=== PATIENT | male | born 1950 | race African-American/Black ===

== ENCOUNTER 2016-07-18 16:57 | Emergency (ER) | payer MEDICARE, OTHER ==
[2016-07-18] MEDS ORDERED: KETOROLAC 60 MG/2 ML VIAL IM STA (17:24)
[2016-07-18] MEDS ORDERED: ORPHENADRINE 30 MG/ML 2 ML VIAL IM STA (17:24)
--- NOTE | 2016-07-18 17:54 | CT ---
EXAMINATION TYPE: CT cervical spine wo con DATE OF EXAM: 07/18/2016 5:47 PM COMPARISON: NONE HISTORY: Patient having neck pain for past couple of days, hurts to lay down, arm pain as well-bilate rally CT DLP: 415.6 mGycm Automated exposure control for dose reduction was used. TECHNIQUE: CT scan of the cervical spine is obtained without contrast, axial images are obtained, sa gittal and coronal reformatted images are also reviewed. FINDINGS: There is some straightening of the vertebra. There is disc space narrowing from C3 to C7 wi th spurring of the endplates. Facet joints are intact. There is mild hypertrophic facet arthropathy. Skull base appears intact. There is more severe disc space narrowing at C5-6 C6-7. There is multileve l subchondral cystic change in the thoracic vertebral bodies. There is no evidence for cervical bony spinal stenosis. IMPRESSION: Moderate multilevel spondylosis. No fracture seen. There is noted the mild bilateral cerv ical adenopathy with lymph nodes that measure up to 1 cm.
--- NOTE | 2016-07-18 17:56 | ED ---
Extremity Problem HPI - General Chief complaint: Extremity Problem,Nontraumatic Stated complaint: weakness Time Seen by Provider: 07/18/16 17:17 Source: patient, RN notes reviewed Mode of arrival: wheelchair Limitations: no limitations - History of Present Illness Initial comments: 65-year-old male presents to the emergency department with a chief complaint of bilateral shoulder pain and neck pain that radiates down the arms. Patient states it hurts to move his shoulders it hurts to move his head or hurts to move his elbows. Patient states that he is just very sore. Patient states it hurts that he relates that sometimes. Patient states he just could not tolerate anymore home states that he should be seen. Patient states he hasn't had any fever chills with this. Patient states he Q all the way to the shoulders to touch. Patient states he hasn't had any cough, runny nose or chest pain with this. Patient denies any nausea or vomiting. Patient states that he was concerned due to the continued symptoms so she thought that they should be seen.Patient denies any recent fever, chills, shortness of breath, chest pain, back pain, abdominal pain, nausea vomiting, numbness or tingling, dysuria or hematuria, constipation or diarrhea, headaches or visual changes, or any other current symptoms. - Related Data Home Medications Medication Instructions Recorded Confirmed Betamethasone Dipropionate 1 cream TOPICAL BID 03/30/15 02/27/16 [Diprolene 0.05% Lotion] Furosemide [Lasix] 40 mg PO DAILY 03/30/15 02/27/16 HYDROcodone/APAP 10-325MG [Oolitic 1 tab PO Q6HR PRN 03/30/15 02/27/16 10-325] Loratadine [Claritin] 10 mg PO DAILY 03/30/15 02/27/16 Omeprazole [PriLOSEC] 20 mg PO AC-BRKFST 03/30/15 02/27/16 Simvastatin [Zocor] 40 mg PO HS 03/30/15 02/27/16 Albuterol Nebulized [Ventolin 2.5 mg INHALATION RT-Q6H PRN 12/29/15 02/27/16 Nebulized] Aspirin EC [Ecotrin Low Dose] 162 mg PO DAILY 12/29/15 02/27/16 C[place]gus 600 mg PO BID 12/29/15 02/27/16 Ipratropium Crane [Atrovent Hfa] 2 puff INHALATION RT-QID PRN 12/29/15 Multivitamins, Thera [Multivitamin] 1 tab PO DAILY 12/29/15 02/27/16 Sildenafil [Revatio] 40 - 100 mg PO DIRECTED PRN 12/29/15 02/27/16 Triamcinolone 0.1% Ointment 1 applic TOPICAL BID 12/29/15 02/27/16 [Kenalog 0.1% Ointment] Urea Cream 40% 1 applic TOPICAL BID@0900,1700 12/29/15 02/27/16 Viekira Matt 1 pack PO DAILY 12/29/15 02/27/16 Previous Rx's Medication Instructions Recorded Furosemide [Lasix] 20 mg PO DAILY #5 tab 12/29/15 HYDROcodone/APAP 5-325MG [Oolitic 1 tab PO Q6HR PRN #30 tab 02/27/16 5-325] Naproxen [Naprosyn] 500 mg PO Q12HR #60 tab 02/27/16 Orphenadrine [Norflex] 100 mg PO Q12H #10 tablet.er 07/18/16 Allergies Allergy/AdvReac Type Severity Reaction Status Date / Time zinc oxide Allergy Rash/Hives Verified 07/18/16 17:16 Review of Systems ROS Statement: Those systems with pertinent positive or pertinent negative responses have been documented in the HPI. ROS Other: All systems not noted in ROS Statement are negative. Past Medical History Past Medical History: Heart Failure, COPD, Hyperlipidemia, Rheumatoid Arthritis (RA), Skin Disorder, Vascular Disorder Additional Past Medical History / Comment(s): lt lower leg wounds, psoriasis, chronic back pain,depression,male sexual dysfunction,low testosterone,pvd, hx fracture right tib/fib. synovitis wrist, hx of substance use,hx alcohol abuse, leukocytosis hx of cocaine use History of Any Multi-Drug Resistant Organisms: None Reported Past Surgical History: Joint Replacement Additional Past Surgical History / Comment(s): bilateral hip replacement, rt knee surgery with maria Past Anesthesia/Blood Transfusion Reactions: No Reported Reaction Past Psychological History: Depression Smoking Status: Current every day smoker Past Alcohol Use History: None Reported Past Drug Use History: None Reported - Past Family History Mother Family Medical History: Cancer General Exam - General Exam Comments Initial Comments: General: The patient is awake and alert, in no distress, and does not appear acutely ill. Eye: Pupils are equal, round and reactive to light, extra-ocular movements are intact; there is normal conjunctiva bilaterally. No signs of icterus. Ears, nose, mouth and throat: There are moist mucous membranes. Neck: The neck is supple, there is tenderness through the cervical spine and along bilateral trapezius and down both arms. Cardiovascular: There is a regular rate and rhythm. No murmur, rub or gallop is appreciated. Respiratory: Lungs are clear to auscultation, respirations are non-labored, breath sounds are equal. No wheezes, stridor, rales, or rhonchi. Gastrointestinal: Soft, non-distended, non-tender abdomen without masses or organomegaly noted. There is no rebound or guarding present. No CVA tenderness. Bowel sounds are unremarkable. Back: There is no tenderness to palpation in the midline. There is no obvious deformity. No rashes noted. Musculoskeletal: Normal ROM, she's tenderness patient through the shoulders elbows and wrists. There is no pedal edema. There is no calf tenderness or swelling. Sensation intact. Pulses equal bilaterally 2+. Neurological: CN II-XII intact, There are no obvious motor or sensory deficits. Coordination appears grossly intact. Speech is normal. Skin: Skin is warm and dry and no rashes or lesions are noted. Psychiatric: Cooperative, appropriate mood & affect, normal judgment. Limitations: no limitations Course Vital Signs 07/18/16 17:13 Temperature 98.0 F Pulse Rate 73 Respiratory 20 Rate Blood Pressure 131/84 O2 Sat by Pulse 96 Oximetry Medical Decision Making - Medical Decision Making 65-year-old male presents for neck and bilateral shoulder bilateral elbow pain. This time patient's symptoms are significant for a radiculopathy along with a trapezius bilateral muscle strain. This time he is tender over these areas as well as the pain is ring down the arms. At this time we discussed follow-up with orthopedic. We did discuss to use the muscle relaxers as well as Tylenol for pain control and return parameters understood all questions were answered. She will be discharged home. Disposition Clinical Impression: Trapezius strain, Cervical radiculopathy Disposition: HOME SELF-CARE Condition: Stable Instructions: Cervical Radiculopathy (ED) Additional Instructions: Please use medication as discussed. Please follow up with family doctor if symptoms have not improved over the next two days. Please return to the emergency room if your symptoms increase or worsen or for any other concerns. Prescriptions: Orphenadrine [Norflex] 100 mg PO Q12H #10 tablet.er Referrals: Kwame Urena DO [Doctor of Osteopathic Medicine] - 1-2 days Time of Disposition: 18:11
[2016-07-18 18:21] VITALS: BP 147/93; PULSE 70; RESP 18; TEMP 97.7
== END 2016-07-18 18:25 | disposition home or self-care (01) ==
LOC: EC 16:57
DX: S46.812A Strain of other muscles, fascia and tendons at shoulder and upper arm level, left arm, initial encounter (principal); S46.811A Strain of other muscles, fascia and tendons at shoulder and upper arm level, right arm, initial encounter; M54.12 Radiculopathy, cervical region; X58.XXXA Exposure to other specified factors, initial encounter; R59.0 Localized enlarged lymph nodes; M47.9 Spondylosis, unspecified; Z79.899 Other long term (current) drug therapy; E78.5 Hyperlipidemia, unspecified; Z79.82 Long term (current) use of aspirin; Z88.8 Allergy status to other drugs, medicaments and biological substances; F17.200 Nicotine dependence, unspecified, uncomplicated; L40.9 Psoriasis, unspecified; I50.9 Heart failure, unspecified; N53.9 Unspecified male sexual dysfunction
CPT/HCPCS: 72125; 96372 ×2; 99285; J2360; J1885

== ENCOUNTER 2016-12-03 10:23 | Emergency (ER) | payer MEDICARE, OTHER ==
[2016-12-03] MEDS ORDERED: MORPHINE SULFATE 4 MG/ML SYRINGE IV STA (10:47)
[2016-12-03 10:50] VITALS: RESP 17
--- NOTE | 2016-12-03 11:25 | ED ---
General Adult HPI - General Chief complaint: Recheck/Abnormal Lab/Rx Stated complaint: EXTREMITIES SWELLING, NOT FEELING RIGHT Time Seen by Provider: 12/03/16 10:34 Source: patient, RN notes reviewed, old records reviewed Mode of arrival: wheelchair Limitations: no limitations - History of Present Illness Initial comments: This is a 66-year-old male to the ER for evaluation patient with ER for evaluation regarding probable CVA, patient is syncopal event, patient syncopal event at [facility], that he had severe left-sided deficit. Patient unable to give history is obtained from EMS and patient's chart - Related Data Home Medications Medication Instructions Recorded Confirmed Betamethasone Dipropionate 1 cream TOPICAL BID 03/30/15 02/27/16 [Diprolene 0.05% Lotion] Furosemide [Lasix] 40 mg PO DAILY 03/30/15 02/27/16 HYDROcodone/APAP 10-325MG [Gilman 1 tab PO Q6HR PRN 03/30/15 02/27/16 10-325] Loratadine [Claritin] 10 mg PO DAILY 03/30/15 02/27/16 Omeprazole [PriLOSEC] 20 mg PO AC-BRKFST 03/30/15 02/27/16 Simvastatin [Zocor] 40 mg PO HS 03/30/15 02/27/16 Albuterol Nebulized [Ventolin 2.5 mg INHALATION RT-Q6H PRN 12/29/15 02/27/16 Nebulized] Aspirin EC [Ecotrin Low Dose] 162 mg PO DAILY 12/29/15 02/27/16 Copegus 600 mg PO BID 12/29/15 02/27/16 Ipratropium Noble [Atrovent Hfa] 2 puff INHALATION RT-QID PRN 12/29/15 Multivitamins, Thera [Multivitamin] 1 tab PO DAILY 12/29/15 02/27/16 Sildenafil [Revatio] 40 - 100 mg PO DIRECTED PRN 12/29/15 02/27/16 Triamcinolone 0.1% Ointment 1 applic TOPICAL BID 12/29/15 02/27/16 [Kenalog 0.1% Ointment] Urea Cream 40% 1 applic TOPICAL BID@0900,1700 12/29/15 02/27/16 Viekira Matt 1 pack PO DAILY 12/29/15 02/27/16 Previous Rx's Medication Instructions Recorded Furosemide [Lasix] 20 mg PO DAILY #5 tab 12/29/15 HYDROcodone/APAP 5-325MG [Gilman 1 tab PO Q6HR PRN #30 tab 02/27/16 5-325] Naproxen [Naprosyn] 500 mg PO Q12HR #60 tab 02/27/16 Orphenadrine [Norflex] 100 mg PO Q12H #10 tablet.er 07/18/16 Allergies Allergy/AdvReac Type Severity Reaction Status Date / Time zinc oxide Allergy Rash/Hives Verified 12/03/16 10:32 Review of Systems ROS Statement: Those systems with pertinent positive or pertinent negative responses have been documented in the HPI. ROS Other: All systems not noted in ROS Statement are negative. Past Medical History Past Medical History: Heart Failure, COPD, Hyperlipidemia, Rheumatoid Arthritis (RA), Skin Disorder, Vascular Disorder Additional Past Medical History / Comment(s): lt lower leg wounds, psoriasis, chronic back pain,depression,male sexual dysfunction,low testosterone,pvd, hx fracture right tib/fib. synovitis wrist, hx of substance use,hx alcohol abuse, leukocytosis hx of cocaine use History of Any Multi-Drug Resistant Organisms: None Reported Past Surgical History: Joint Replacement Additional Past Surgical History / Comment(s): bilateral hip replacement, rt knee surgery with maria Past Anesthesia/Blood Transfusion Reactions: No Reported Reaction Past Psychological History: Depression Smoking Status: Current every day smoker Past Alcohol Use History: Occasional Past Drug Use History: None Reported - Past Family History Mother Family Medical History: Cancer General Exam - General Exam Comments Initial Comments: Bilateral upper extremity lower extremity edema, chronic Limitations: no limitations General appearance: alert, in no apparent distress Head exam: Present: atraumatic, normocephalic, normal inspection Eye exam: Present: normal appearance, PERRL, EOMI. Absent: scleral icterus, conjunctival injection, periorbital swelling ENT exam: Present: normal exam, mucous membranes moist Neck exam: Present: normal inspection. Absent: tenderness, meningismus, lymphadenopathy Respiratory exam: Present: normal lung sounds bilaterally. Absent: respiratory distress, wheezes, rales, rhonchi, stridor Cardiovascular Exam: Present: regular rate, normal rhythm, normal heart sounds. Absent: systolic murmur, diastolic murmur, rubs, gallop, clicks GI/Abdominal exam: Present: soft, normal bowel sounds. Absent: distended, tenderness, guarding, rebound, rigid Extremities exam: Present: normal inspection, full ROM, normal capillary refill. Absent: tenderness, pedal edema, joint swelling, calf tenderness Back exam: Present: normal inspection Neurological exam: Present: alert, oriented X3, CN II-XII intact Psychiatric exam: Present: normal affect, normal mood Skin exam: Present: warm, dry, intact, normal color. Absent: rash Course Vital Signs 12/03/16 12/03/16 12/03/16 10:28 10:50 11:59 Temperature 97.8 F Pulse Rate 70 67 63 Respiratory 18 17 17 Rate Blood Pressure 167/79 157/87 188/82 O2 Sat by Pulse 97 92 L 92 L Oximetry 12/03/16 12:11 Temperature Pulse Rate Respiratory Rate Blood Pressure O2 Sat by Pulse 96 Oximetry - Reevaluation(s) Reevaluation #1: 12/03/16 12:50 Patient has good improvement of pain control at this time EKG Findings - EKG Comments: EKG Findings:: EKG shows normal sinus rhythm with a 2, MA 16, QRS 86, QTC 397 Medical Decision Making - Medical Decision Making 66-year-old year frequent or chronic pain, chronic edema. No liver or renal failure appreciated. Patient is malnourished with low protein intake, patient will be discharged home, given 1 dose of Lasix. Follow-up with family. Family care for further management - Lab Data Result diagrams: 12/03/16 11:18 12/03/16 11:18 Lab Results 12/03/16 12/03/16 12/03/16 Range/Units 11:18 11:18 11:18 WBC 6.8 (3.8-10.6) k/uL RBC 4.23 L (4.30-5.90) m/uL Hgb 13.3 (13.0-17.5) gm/dL Hct 41.5 (39.0-53.0) % MCV 98.3 (80.0-100.0) fL MCH 31.5 (25.0-35.0) pg MCHC 32.1 (31.0-37.0) g/dL RDW 13.7 (11.5-15.5) % Plt Count 492 H (150-450) k/uL Neutrophils % 65 % Lymphocytes % 19 % Monocytes % 10 % Eosinophils % 4 % Basophils % 1 % Neutrophils # 4.4 (1.3-7.7) k/uL Lymphocytes # 1.3 (1.0-4.8) k/uL Monocytes # 0.7 (0-1.0) k/uL Eosinophils # 0.3 (0-0.7) k/uL Basophils # 0.1 (0-0.2) k/uL PT (9.0-12.0) sec INR (<1.2) APTT (22.0-30.0) sec Sodium 142 (137-145) mmol/L Potassium 4.4 (3.5-5.1) mmol/L Chloride 108 H (98-107) mmol/L Carbon Dioxide 25 (22-30) mmol/L Anion Gap 9 mmol/L BUN 12 (9-20) mg/dL Creatinine 0.78 (0.66-1.25) mg/dL Est GFR (MDRD) Af Amer >60 (>60 ml/min/1.73 sqM) Est GFR (MDRD) Non-Af >60 (>60 ml/min/1.73 sqM) Glucose 108 H (74-99) mg/dL Calcium 8.7 (8.4-10.2) mg/dL Phosphorus 3.1 (2.5-4.5) mg/dL Magnesium 2.0 (1.6-2.3) mg/dL Total Bilirubin 0.6 (0.2-1.3) mg/dL AST 26 (17-59) U/L ALT 28 (21-72) U/L Alkaline Phosphatase 118 (38-126) U/L Total Creatine Kinase 28 L (55-170) U/L CK-MB (CK-2) 1.1 (0.0-2.4) ng/mL CK-MB (CK-2) Rel Index 3.9 Troponin I <0.012 (0.000-0.034) ng/mL NT-Pro-B Natriuret Pep pg/mL Total Protein 7.6 (6.3-8.2) g/dL Albumin 3.3 L (3.5-5.0) g/dL 12/03/16 12/03/16 Range/Units 11:18 11:18 WBC (3.8-10.6) k/uL RBC (4.30-5.90) m/uL Hgb (13.0-17.5) gm/dL Hct (39.0-53.0) % MCV (80.0-100.0) fL MCH (25.0-35.0) pg MCHC (31.0-37.0) g/dL RDW (11.5-15.5) % Plt Count (150-450) k/uL Neutrophils % % Lymphocytes % % Monocytes % % Eosinophils % % Basophils % % Neutrophils # (1.3-7.7) k/uL Lymphocytes # (1.0-4.8) k/uL Monocytes # (0-1.0) k/uL Eosinophils # (0-0.7) k/uL Basophils # (0-0.2) k/uL PT 10.8 (9.0-12.0) sec INR 1.1 (<1.2) APTT 24.9 (22.0-30.0) sec Sodium (137-145) mmol/L Potassium (3.5-5.1) mmol/L Chloride (98-107) mmol/L Carbon Dioxide (22-30) mmol/L Anion Gap mmol/L BUN (9-20) mg/dL Creatinine (0.66-1.25) mg/dL Est GFR (MDRD) Af Amer (>60 ml/min/1.73 sqM) Est GFR (MDRD) Non-Af (>60 ml/min/1.73 sqM) Glucose (74-99) mg/dL Calcium (8.4-10.2) mg/dL Phosphorus (2.5-4.5) mg/dL Magnesium (1.6-2.3) mg/dL Total Bilirubin (0.2-1.3) mg/dL AST (17-59) U/L ALT (21-72) U/L Alkaline Phosphatase (38-126) U/L Total Creatine Kinase (55-170) U/L CK-MB (CK-2) (0.0-2.4) ng/mL CK-MB (CK-2) Rel Index Troponin I (0.000-0.034) ng/mL NT-Pro-B Natriuret Pep 1300 pg/mL Total Protein (6.3-8.2) g/dL Albumin (3.5-5.0) g/dL Disposition Clinical Impression: Hand edema, Leg edema Disposition: HOME SELF-CARE Condition: Good Instructions: Lymphedema (ED), Leg Edema (ED), Edema (ED) Referrals: Nonstaff,Physician [Primary Care Provider] - 1-2 days
[2016-12-03 11:30] LABS: Basophils # (A) 0.1 k/uL (0-0.2); Basophils % (A) 1 %; CH 31.3; Eosinophils # (A) 0.3 k/uL (0-0.7); Eosinophils % (A) 4 %; HCT 41.5 % (39.0-53.0); HDW 2.56; HGB 13.3 gm/dL (13.0-17.5); Luc # (Auto) 0.12; Luc % (Auto) 2; Lymphocytes # (A) 1.3 k/uL (1.0-4.8); Lymphocytes % (A) 19 %; MCH 31.5 pg (25.0-35.0); MCHC 32.1 g/dL (31.0-37.0); MCV 98.3 fL (80.0-100.0); Mean Platelet Volume 7.1; Monocytes # (A) 0.7 k/uL (0-1.0); Monocytes % (A) 10 %; Neutrophils # (A) 4.4 k/uL (1.3-7.7); Neutrophils % (A) 65 %; RBC 4.23 m/uL (4.30-5.90); RDW 13.7 % (11.5-15.5); WBC 6.8 k/uL (3.8-10.6); WBC (Perox) 6.26
[2016-12-03 11:40] LABS: ALT 28 U/L (21-72); AST 26 U/L (17-59); Alkaline Phosphatase 118 U/L (38-126); Anion Gap 9 mmol/L; Blood Urea Nitrogen 12 mg/dL (9-20); Calcium 8.7 mg/dL (8.4-10.2); Carbon Dioxide 25 mmol/L (22-30); Chloride 108 mmol/L (98-107); Glucose 108 mg/dL (74-99); Non-African American GFR(MDRD) >60 (>60 ml/min/1.73 sqM); Phosphorous 3.1 mg/dL (2.5-4.5); Potassium 4.4 mmol/L (3.5-5.1); Sodium 142 mmol/L (137-145); Total Bilirubin 0.6 mg/dL (0.2-1.3); Total Protein 7.6 g/dL (6.3-8.2)
[2016-12-03 11:49] LABS: Creatine Kinase 28 U/L (55-170); INR 1.1 (<1.2); Partial Thromboplastin Time 24.9 sec (22.0-30.0); Prothrombin Time 10.8 sec (9.0-12.0)
[2016-12-03 12:02] LABS: Creatine Kinase MB 1.1 ng/mL (0.0-2.4); Troponin I <0.012 ng/mL (0.000-0.034)
[2016-12-03] MEDS ORDERED: FUROSEMIDE 10 MG/ML 4 ML VIAL IV STA (12:05)
[2016-12-03 13:32] VITALS: BP 170/92; PULSE 60; TEMP 97.2
== END 2016-12-03 13:32 | disposition home or self-care (01) ==
LOC: EC 10:23
DX: R60.0 Localized edema (principal); I50.9 Heart failure, unspecified; M06.9 Rheumatoid arthritis, unspecified; E78.5 Hyperlipidemia, unspecified; L40.9 Psoriasis, unspecified; F17.200 Nicotine dependence, unspecified, uncomplicated; Z79.52 Long term (current) use of systemic steroids; Z79.82 Long term (current) use of aspirin; Z79.899 Other long term (current) drug therapy; Z88.2 Allergy status to sulfonamides
CPT/HCPCS: 36415; 93005; 83880; 80053; 82550; 82553; 83735; 84100; 84484; 85025; 85610; 85730; 99284; 96374; 96375; J2270; J1940

== ENCOUNTER → 2017-01-05 | Outpatient (CLI) | payer MEDICARE, OTHER ==
--- NOTE | 2017-01-05 15:19 | XR ---
EXAMINATION TYPE: XR tibia fibula LT DATE OF EXAM: 01/05/2017 CLINICAL HISTORY: pain TECHNIQUE: AP and lateral images of the left tibia and fibula are obtained. COMPARISON: None. FINDINGS: There is no acute fracture/dislocation evident. The joint spaces appear within normal bergeron its. Ulceration identified. No evidence for osteomyelitis. Vascular calcifications noted. IMPRESSION: There is no acute fracture or dislocation seen. ICD 10 NO FRACTURE, INITIAL EVALUATION
== END ==
LOC: RADXRMAIN 14:54
PROVIDERS: ATTEND Family Medicine
DX: I87.2 Venous insufficiency (chronic) (peripheral) (principal)

== ENCOUNTER 2018-03-17 18:11 | Emergency (ER) | payer OTHER, MEDICARE ==
[2018-03-17] MEDS ORDERED: SODIUM CHLORIDE 0.9% 500 ML 500 ML IV STA (18:39)
[2018-03-17] MEDS ORDERED: ONDANSETRON 4 MG/2 ML VIAL IVP STA (18:48)
[2018-03-17] MEDS ORDERED: MORPHINE SULFATE 4 MG/ML SYRINGE IVP STA (18:48)
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
[2018-03-17 19:10] LABS: Basophils % (A) 0 %; Eosinophils # (A) 0.2 k/uL (0-0.7); Eosinophils % (A) 3 %; HCT 42.3 % (39.0-53.0); HGB 13.5 gm/dL (13.0-17.5); Lymphocytes # (A) 1.6 k/uL (1.0-4.8); Lymphocytes % (A) 25 %; MCHC 31.9 g/dL (31.0-37.0); MCV 94.3 fL (80.0-100.0); Mean Platelet Volume 6.7; Monocytes # (A) 0.4 k/uL (0-1.0); Monocytes % (A) 7 %; Neutrophils # (A) 4.2 k/uL (1.3-7.7); Neutrophils % (A) 64 %; Platelet Count 313 k/uL (150-450); RBC 4.48 m/uL (4.30-5.90); RDW 13.6 % (11.5-15.5); WBC 6.5 k/uL (3.8-10.6)
[2018-03-17 19:18] LABS: INR 1.2 (<1.2); Partial Thromboplastin Time 24.7 sec (22.0-30.0); Prothrombin Time 11.1 sec (9.0-12.0)
[2018-03-17 19:23] LABS: ALT 10 U/L (21-72); AST 17 U/L (17-59); Albumin 2.9 g/dL (3.5-5.0); Alcohol <10 mg/dL; Alkaline Phosphatase 87 U/L (38-126); Anion Gap 4 mmol/L; Blood Urea Nitrogen 11 mg/dL (9-20); Calcium 8.8 mg/dL (8.4-10.2); Carbon Dioxide 29 mmol/L (22-30); Chloride 108 mmol/L (98-107); Creatine Kinase 106 U/L (55-170); Glucose 96 mg/dL (74-99); Potassium 4.4 mmol/L (3.5-5.1); Sodium 141 mmol/L (137-145); Total Bilirubin 0.5 mg/dL (0.2-1.3); Total Protein 7.5 g/dL (6.3-8.2)
[2018-03-17 19:34] LABS: Creatine Kinase MB 0.7 ng/mL (0.0-2.4); Troponin I <0.012 ng/mL (0.000-0.034)
--- NOTE | 2018-03-17 20:22 | CT ---
EXAMINATION TYPE: CT abdomen pelvis w con DATE OF EXAM: 03/17/2018 COMPARISON: INDICATION: Back and right flank pain. DLP: 861.9 mGycm, Automated exposure control for dose reduction was used. CONTRAST: 100 mL of Isovue 300. Study performed without Oral Contrast TECHNIQUE: Axial images were obtained from above the diaphragm to the pubic rami in the axial plane a t 5 mm thick sections. Reconstructed images are reviewed on the computer in the coronal plane. FINDINGS: Limited CT sections are obtained the lung bases. The lung bases are clear. CT ABDOMEN: There may be a small amount of free fluid adjacent to the liver. Small amount of fluid is also within the pelvis which is abnormal in a male. Liver: Normal Spleen: Normal Pancreas: Normal Adrenal glands: The adrenal glands are normal. Gallbladder: Normal Kidneys: No masses are evident. No hydronephrosis is present. There is a 1.5 cm cyst measuring 3 Ho unsfield units at the inferior medial right kidney. Aorta: Normal Inferior vena cava: Normal. CT PELVIS: Superior to the right hip prosthesis there is some irregular hypodensity. This could be po stsurgical change. Correlate with the timing of surgery. Abscess formation is not excluded. Largest p ocket is estimated at 1.3 cm. Loops of bowel within the abdomen and pelvis are normal. Abundant fecal debris is within the prox imal ascending colon Appendix: Not identified. This may be obscured by the beam are new and artifact from the bilateral hi p prostheses. Urinary bladder: Essentially nondiagnostic. Genitourinary structures: Prostate is poorly visualized Osseous structures: Bilateral hip prostheses are present. This causes beam hardening artifact in some limitation lower pelvis. Degenerative disc changes are within the lumbar spine. Some facet hypertrop hy is present at the lower lumbar spine. There is a rib fracture of the right lateral 12th rib tip, posterior lateral 11th rib in the 11th rib slightly more medial posterior is well. A lateral right 10th rib nondisplaced fracture is present. C orrelate for mechanism of injury. No pneumothorax is evident. No liver lacerations are evident. IMPRESSIONS: 1. Right rib fractures 10 through 12. There are 2 fractures within the 11th rib. 2. Minimal fluid adjacent to the liver. No liver laceration is evident. 3. Hypodense heterogenous area lateral to the right hip prosthesis. Correlate with the timing of surg orestes. Abscess and postsurgical changes could be considered. 4. Fluid within the pelvis is felt to be ascites. Given the patient's rib injuries however, hemorrhag e which would be old is not excluded.
--- NOTE | 2018-03-17 20:41 | XR ---
EXAMINATION TYPE: XR Hip RT and AP Pelvis DATE OF EXAM: 03/17/2018 COMPARISON: None HISTORY: Pain TECHNIQUE: AP pelvis and right hip. FINDINGS: Right hip prosthesis is present. Left hip prosthesis within the [id number]. No acute fractures are evident. IMPRESSION: 1. Bilateral hip prostheses. No acute fracture of the right hip or pelvis is evident.
--- NOTE | 2018-03-17 20:43 | XR ---
EXAMINATION TYPE: XR ribs RT w pa chest xray DATE OF EXAM: 03/17/2018 COMPARISON: None HISTORY: Fall, right flank pain low back pain TECHNIQUE: Chest examined in the frontal projection. Right ribs are examined in 2 projections each. FINDINGS: 10,11 and 12th rib fractures are evident. See also CT abdomen pelvis same date. No pneumoth orax is evident. No suspicious infiltrates are evident IMPRESSION: 1. Right 10th, 11th and 12th rib fractures.
[2018-03-17 21:02] VITALS: RESP 15
[2018-03-17] MEDS ORDERED: ACET/COD 300 MG/30 MG STARTER PACK 6 TAB BTL PO STA (21:22)
[2018-03-17 22:03] VITALS: BP 137/79; PULSE 63
[2018-03-17 22:09] VITALS: TEMP 99
== END 2018-03-17 22:15 | disposition home or self-care (01) ==
LOC: SUPCPDRO 18:11 → EC 18:11
DX: S22.41XA Multiple fractures of ribs, right side, initial encounter for closed fracture (principal); J44.9 Chronic obstructive pulmonary disease, unspecified; I50.9 Heart failure, unspecified; E78.5 Hyperlipidemia, unspecified; F17.200 Nicotine dependence, unspecified, uncomplicated; Z79.82 Long term (current) use of aspirin; Z79.899 Other long term (current) drug therapy; Z91.048 Other nonmedicinal substance allergy status; Z96.643 Presence of artificial hip joint, bilateral; V03.00XA Pedestrian on foot injured in collision with car, pick-up truck or van in nontraffic accident, initial encounter; Y92.410 Unspecified street and highway as the place of occurrence of the external cause
CPT/HCPCS: 36415; 93005; 80053; 82550; 82553; 84484; 85025; 85610; 85730; 80320; 71101; 73502; 74177; 99284; 96374; 96375; 96361; J2270; J2405; Q9967

== ENCOUNTER 2018-11-27 23:13 | Inpatient (IN) | payer MEDICARE, OTHER ==
[2018-11-27] MEDS ORDERED: PIPERACILLIN-TAZOBACTAM 3.375 GM in SODIUM CHLORIDE 0.9% 100 ML IVPB STA (23:29)
--- NOTE | 2018-11-27 23:32 | ED ---
General Adult HPI - General Chief complaint: Skin/Abscess/Foreign Body Stated complaint: poss wound infection Time Seen by Provider: 11/27/18 23:19 Source: patient Mode of arrival: ambulatory - History of Present Illness Initial comments: Dictation was produced using [employer] dictation software. please excuse any grammatical, word or spelling errors. Chief Complaint: 67-year-old male with past medical history of heart failure CPD dyslipidemia, chronic wounds presents with worsening left ankle wound. History of Present Illness: 67-year-old male with multiple comorbidities including chronic wounds presents with left ankle wound for the last 4 days. Patient was at home by himself. He noticed the wound started proximally 4-5 days ago. Noticed that the bone was getting slightly worse. Also reports that pain has been increasing. Patient reports that does not have any constitutional symptoms. Patient reports having had was like this in the past. States that he gets them frequently almost yearly. Patient reports increased pain to his left medial malleolus. Denies any numbness or paresthesias to the foot. The ROS documented in this emergency department record has been reviewed and confirmed by me. Those systems with pertinent positive or negative responses have been documented in the HPI. All other systems are other negative and/or noncontributory. PHYSICAL EXAM: General Impression: Alert and oriented x3, not in acute distress HEENT: Normocephalic atraumatic, extra-ocular movements intact, pupils equal and reactive to light bilaterally, mucous membranes moist. Cardiovascular: Heart regular rate and rhythm, S1&S2 audible, no murmurs, rubs or gallops Chest: Lungs clear to auscultation bilaterally, no rhonchi, no wheeze, no rales Abdomen: Bowel sounds present, abdomen soft, non-tender, non-distended, no organomegaly Musculoskeletal: Pulses present and equal in all extremities, no peripheral edema Motor: no focal deficits noted Neurological: CN II-XII grossly intact, no focal motor or sensory deficits noted Skin: Intact with no visualized rashes Psych: Normal affect and mood Left lower extremity: Large with ulcer with surrounding erythema and malodorous smell. No exposed bone. ED course: 67-year-old male with clinical presentation consistent with wet gangrene to the left lower extremity. As upon arrival are within acceptable limits.Ankle x-ray was obtained to evaluate for possible ostomy myelitis versus soft tissue gas. X-rays unremarkable. Laboratory evaluation obtained. No leukocytosis. Pending metabolic panel. Patient started on vancomycin and Zosyn for wet gangrene. Patient be admitted to hospitalist group for further care. EKG interpretation: Ventricular rate excellent, normal sinus rhythm,. Interval 154, care 70, QTC 420. No ME prolongation, no QTC prolongation, no ST or T-wave changes noted. EKG compared to 03/17/2018 showing no changes. Overall, this EKG is unremarkable - Related Data Home Medications Medication Instructions Recorded Confirmed HYDROcodone/APAP 10-325MG [[place] 1 tab PO Q6HR PRN 03/30/15 11/27/18 10-325] Loratadine [Claritin] 10 mg PO DAILY 03/30/15 11/27/18 Omeprazole [PriLOSEC] 20 mg PO AC-BRKFST 03/30/15 11/27/18 Simvastatin [Zocor] 40 mg PO HS 03/30/15 11/27/18 Aspirin EC [Ecotrin Low Dose] 81 mg PO DAILY 12/29/15 11/27/18 Ipratropium [place] [Atrovent Hfa] 2 puff INHALATION RT-QID PRN 12/29/15 11/27/18 Multivitamins, Thera [Multivitamin] 1 tab PO DAILY 12/29/15 11/27/18 Furosemide [Lasix] 20 mg PO DAILY PRN 03/07/17 11/27/18 Allergies Allergy/AdvReac Type Severity Reaction Status Date / Time zinc oxide Allergy Rash/Hives Verified 11/27/18 23:30 Review of Systems ROS Statement: Those systems with pertinent positive or pertinent negative responses have been documented in the HPI. ROS Other: All systems not noted in ROS Statement are negative. Past Medical History Past Medical History: Heart Failure, COPD, Hyperlipidemia, Rheumatoid Arthritis (RA), Skin Disorder, Vascular Disorder Additional Past Medical History / Comment(s): lt lower leg wounds, psoriasis, chronic back pain,depression,male sexual dysfunction,low testosterone,pvd, hx fracture right tib/fib. synovitis wrist, hx of substance use,hx alcohol abuse,leukocytosis hx of cocaine use History of Any Multi-Drug Resistant Organisms: None Reported Past Surgical History: Joint Replacement Additional Past Surgical History / Comment(s): bilateral hip replacement, rt knee surgery with maria Past Anesthesia/Blood Transfusion Reactions: No Reported Reaction Past Psychological History: Depression Smoking Status: Current every day smoker Past Alcohol Use History: Occasional Past Drug Use History: Cocaine, Heroin - Past Family History Father Family Medical History: Cancer Mother Family Medical History: Cancer Course Vital Signs 11/27/18 23:14 Temperature 97.6 F Pulse Rate 43 L Respiratory 17 Rate Blood Pressure 171/103 O2 Sat by Pulse 99 Oximetry Medical Decision Making - Lab Data Result diagrams: 11/28/18 01:00 Lab Results 11/28/18 Range/Units 01:00 WBC 6.4 (3.8-10.6) k/uL RBC 4.81 (4.30-5.90) m/uL Hgb 13.3 (13.0-17.5) gm/dL Hct 44.6 (39.0-53.0) % MCV 92.8 (80.0-100.0) fL MCH 27.6 (25.0-35.0) pg MCHC 29.8 L (31.0-37.0) g/dL RDW 15.3 (11.5-15.5) % Plt Count 415 (150-450) k/uL Neutrophils % 54 % Lymphocytes % 35 % Monocytes % 6 % Eosinophils % 3 % Basophils % 1 % Neutrophils # 3.4 (1.3-7.7) k/uL Lymphocytes # 2.3 (1.0-4.8) k/uL Monocytes # 0.4 (0-1.0) k/uL Eosinophils # 0.2 (0-0.7) k/uL Basophils # 0.0 (0-0.2) k/uL Disposition Clinical Impression: Foot ulcer Disposition: ADMITTED IP TO THIS [facility] Condition: Fair Referrals: None,Stated [Primary Care Provider] - 1-2 days Decision Time: 01:11
[2018-11-28] MEDS ORDERED: MORPHINE SULFATE 4 MG/ML SYRINGE IVP STA (00:08)
--- NOTE | 2018-11-28 00:53 | XR ---
EXAM: XR Left Ankle Complete, 3 or More Views CLINICAL HISTORY: ITS.REASON XR Reason: Pain TECHNIQUE: Frontal, lateral and oblique views of the left ankle. COMPARISON: None FINDINGS: Bones/joints: No displaced fracture or dislocation identified. Ankle mortise is intact. Osteopenia. Left ankle joint effusion. Soft tissues: Mild diffuse soft tissue prominence. IMPRESSION: No displaced fracture or dislocation identified.
[2018-11-28 01:07] LABS: Basophils % (A) 1 %; Eosinophils # (A) 0.2 k/uL (0-0.7); Eosinophils % (A) 3 %; HCT 44.6 % (39.0-53.0); HGB 13.3 gm/dL (13.0-17.5); Lymphocytes # (A) 2.3 k/uL (1.0-4.8); Lymphocytes % (A) 35 %; MCH 27.6 pg (25.0-35.0); MCHC 29.8 g/dL (31.0-37.0); MCV 92.8 fL (80.0-100.0); Mean Platelet Volume 6.4; Monocytes # (A) 0.4 k/uL (0-1.0); Monocytes % (A) 6 %; Neutrophils # (A) 3.4 k/uL (1.3-7.7); Neutrophils % (A) 54 %; Platelet Count 415 k/uL (150-450); RBC 4.81 m/uL (4.30-5.90); RDW 15.3 % (11.5-15.5); WBC 6.4 k/uL (3.8-10.6)
[2018-11-28] MEDS ORDERED: ACETAMINOPHEN TAB 325 MG TAB PO PRN (01:11)
[2018-11-28] MEDS ORDERED: ONDANSETRON 4 MG/2 ML VIAL IVP PRN (01:11)
[2018-11-28] MEDS ORDERED: NALOXONE 0.4 MG/ML 1 ML VIAL IV PRN (01:11)
[2018-11-28 01:15] LABS: Prothrombin Time 10.4 sec (9.0-12.0)
[2018-11-28 01:17] LABS: Calcium 9.3 mg/dL (8.4-10.2)
[2018-11-28] MEDS: HYDROcodone/APAP 5-325MG 1 EACH TAB PO PRN ×4 (04:03→22:29)
[2018-11-28] MEDS: SODIUM CHLORIDE 0.9% 1,000 ML IV SCH (04:04)
[2018-11-28] MEDS: MORPHINE SULFATE 4 MG/ML SYRINGE IV PRN ×4 (05:59→19:54)
[2018-11-28] MEDS: PANTOPRAZOLE 40 MG TABLET PO SCH (08:03)
--- NOTE | 2018-11-28 09:37 | P.CONS ---
History of Present Illness - Reason for Consult Consult date: 11/28/18 Infected leg ulcer - History of Present Illness This is a 67-year-old -[place] man who gives history of having a wound on his left ankle that appears every 3 years. He denies any injury to the area. He does give history of IV drug use when he was young but none for 30 years. After much questioning, patient does admit that he is using heroin and cocaine but is snorting it. Patient is also an active smoker of one pack per day. He drinks alcohol occasionally. He denies history of diabetes. Patient was [facility] and at that time was under the care of Dr. Johansen. Patient states that he has a wound to his left ankle that appeared about 4-5 days ago. He noticed one day that there were maggots in the wound when he was trying to clean it. He has used peroxide and soap and then wraps the ankle tightly. He has not sought treatment for it. He came into [facility] emergency center for evaluation. He was found to be afebrile, white count 6.4, creatinine 1.08, blood sugar 101, lactic acid 1.5. Patient was given Zosyn in the emergency center and [facility] Blood cultures status received. Ankle x-ray showed no displaced fracture. Review of Systems All systems: negative Constitutional: Denies anorexia, Denies chills, Denies fever, Denies poor appetite Eyes: denies blurred vision, denies pain Ears, nose, mouth and throat: Denies dysphagia, Denies headache, Denies mouth pain, Denies nasal congestion, Denies nasal discharge, Denies sore throat, Denies vertigo Cardiovascular: Denies chest pain, Denies decreased exercise tolerance, Denies dyspnea on exertion, Denies edema, Denies leg edema, Denies lightheadedness, Denies shortness of breath, Denies syncope Respiratory: Denies cough, Denies cough with sputum, Denies dyspnea, Denies excessive sputum, Denies hemoptysis, Denies home oxygen, Denies wheezing Gastrointestinal: Denies abdominal pain, Denies diarrhea, Denies loss of appetite, Denies nausea, Denies vomiting Genitourinary: Denies dysuria, Denies urinary retention Musculoskeletal: Denies frequent falls, Denies gait dysfunction, Denies muscle weakness, Denies myalgias Integumentary: Reports wounds, Denies pruritus, Denies rash Neurological: Denies aphasia, Denies change in mentation, Denies numbness, Denies weakness Psychiatric: Denies anxiety, Denies depression Endocrine: Denies fatigue, Denies weight change Past Medical History Past Medical History: Heart Failure, COPD, Hyperlipidemia, Hypertension, Rheumatoid Arthritis (RA), Skin Disorder, Vascular Disorder Additional Past Medical History / Comment(s): lt lower leg wounds, psoriasis, chronic back pain,depression,male sexual dysfunction,low testosterone,pvd, hx fracture right tib/fib. synovitis wrist, hx of cocaine use,hx alcohol abuse,leukocytosis, syncopal epidosed History of Any Multi-Drug Resistant Organisms: None Reported Past Surgical History: Joint Replacement, Tonsillectomy Additional Past Surgical History / Comment(s): bilateral hip replacement, rt knee surgery with maria Past Anesthesia/Blood Transfusion Reactions: No Reported Reaction Past Psychological History: Depression Smoking Status: Current every day smoker Past Alcohol Use History: Occasional Additional Past Alcohol Use History / Comment(s): Patient is a smoker one pack per day for 40+ years. Patient is currently using cocaine and heroin by snorting. He does have history of IV drug abuse but has not used any IV for 30 years. Patient lives alone in his apartment. He does not have any pets. He does not work. 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 Past Drug Use History: Cocaine, Heroin Additional Drug Use History / Comment(s): pt states 30-40 years ago hx of alcohol and cocaine use - Past Family History Father Family Medical History: Cancer Mother Family Medical History: Cancer Medications and Allergies Home Medications Medication Instructions Recorded Confirmed Type HYDROcodone/APAP 10-325MG [[place] 1 tab PO Q6HR PRN 03/30/15 11/27/18 History 10-325] Loratadine [Claritin] 10 mg PO DAILY 03/30/15 11/27/18 History Omeprazole [PriLOSEC] 20 mg PO AC-BRKFST 03/30/15 11/27/18 History Simvastatin [Zocor] 40 mg PO HS 03/30/15 11/27/18 History Aspirin EC [Ecotrin Low Dose] 81 mg PO DAILY 12/29/15 11/27/18 History Ipratropium [place] [Atrovent Hfa] 2 puff INHALATION RT-QID PRN 12/29/15 11/27/18 History Multivitamins, Thera [Multivitamin] 1 tab PO DAILY 12/29/15 11/27/18 History Furosemide [Lasix] 20 mg PO DAILY PRN 03/07/17 11/27/18 History Allergies Allergy/AdvReac Type Severity Reaction Status Date / Time zinc oxide Allergy Rash/Hives Verified 11/27/18 23:30 Physical Exam Vitals: Vital Signs Temp Pulse Pulse Resp BP BP Pulse Ox 11/28/18 04:05 70 18 11/28/18 03:35 97.5 F L 70 18 175/96 99 11/28/18 01:51 76 18 143/82 100 11/28/18 01:14 66 18 171/87 98 11/27/18 23:14 97.6 F 43 L 17 171/103 99 Intake and Output 11/27/18 11/28/18 11/28/18 22:59 06:59 14:59 Intake Total 120 Output Total 1 Balance 119 Intake: Intake, IV Titration 120 Amount Piperacillin-Tazobactam 3 100 .375 gm In Sodium Chloride 0.9% 100 ml @ 200 mls/hr IVPB ONCE STA Rx#:[id number] Sodium Chloride 0.9% 1, 20 000 ml @ 20 mls/hr IV . Q24H [facility] Rx#:[id number] Output: Urine 1 Other: Voiding Method Urinal Urinal # Bowel Movements 1 Weight 77.111 kg Gen: This is a 67-year-old -[place] male. He is resting in bed and appears to be comfortable and in no acute distress HEENT: Head is atraumatic, normocephalic. Pupils equal, round. Sclerae is anicteric. Conjunctiva pink. Mucous members of the mouth are moist. NECK: Supple. No JVD. No lymphadenopathy. No thyromegaly. LUNGS: Clear to auscultation. No wheezes or rhonchi. No intercostal retractions. HEART: Regular rate and rhythm. No murmur. ABDOMEN: Soft. Bowel sounds are present. No masses. No tenderness. EXTREMITIES: No pedal edema. No calf tenderness. Patient has an ulcer to the left medial malleolus. Follow odor noted. NEUROLOGICAL: Patient is awake, alert and oriented x3. Cranial nerves 2 through 12 are grossly intact. Results Results: Laboratory Results WBC 6.4 k/uL (3.8-10.6) 11/28/18 01:00 RBC 4.81 m/uL (4.30-5.90) 11/28/18 01:00 Hgb 13.3 gm/dL (13.0-17.5) 11/28/18 01:00 Hct 44.6 % (39.0-53.0) 11/28/18 01:00 MCV 92.8 fL (80.0-100.0) 11/28/18 01:00 MCH 27.6 pg (25.0-35.0) 11/28/18 01:00 MCHC 29.8 g/dL (31.0-37.0) L 11/28/18 01:00 RDW 15.3 % (11.5-15.5) 11/28/18 01:00 Plt Count 415 k/uL (150-450) 11/28/18 01:00 Neutrophils % 54 % 11/28/18 01:00 Lymphocytes % 35 % 11/28/18 01:00 Monocytes % 6 % 11/28/18 01:00 Eosinophils % 3 % 11/28/18 01:00 Basophils % 1 % 11/28/18 01:00 Neutrophils # 3.4 k/uL (1.3-7.7) 11/28/18 01:00 Lymphocytes # 2.3 k/uL (1.0-4.8) 11/28/18 01:00 Monocytes # 0.4 k/uL (0-1.0) 11/28/18 01:00 Eosinophils # 0.2 k/uL (0-0.7) 11/28/18 01:00 Basophils # 0.0 k/uL (0-0.2) 11/28/18 01:00 PT 10.4 sec (9.0-12.0) 11/28/18 01:00 INR 1.0 (<1.2) 11/28/18 01:00 Sodium 142 mmol/L (137-145) 11/28/18 01:00 Potassium 4.0 mmol/L (3.5-5.1) 11/28/18 01:00 Chloride 107 mmol/L (98-107) 11/28/18 01:00 Carbon Dioxide 27 mmol/L (22-30) 11/28/18 01:00 Anion Gap 8 mmol/L 11/28/18 01:00 BUN 21 mg/dL (9-20) H 11/28/18 01:00 Creatinine 1.08 mg/dL (0.66-1.25) 11/28/18 01:00 Est GFR (CKD-EPI)AfAm 82 (>60 ml/min/1.73 sqM) 11/28/18 01:00 Est GFR (CKD-EPI)NonAf 71 (>60 ml/min/1.73 sqM) 11/28/18 01:00 Glucose 101 mg/dL (74-99) H 11/28/18 01:00 Plasma Lactic Acid [place] 1.5 mmol/L (0.7-2.0) 11/28/18 01:00 Calcium 9.3 mg/dL (8.4-10.2) 11/28/18 01:00 CBC & Chem 7: 11/28/18 01:00 11/28/18 01:00 Labs: Abnormal Lab Results - Last 24 Hours (Table) 11/28/18 11/28/18 Range/Units 01:00 01:00 MCHC 29.8 L (31.0-37.0) g/dL BUN 21 H (9-20) mg/dL Glucose 101 H (74-99) mg/dL Assessment and Plan Plan: This is a 67-year-old F in [place] male who has been treated in the wound healing Center in the past and was discharged from care September 2017. Previous wound culture has been MSSA and Citrobacter koseri. He presents with an venous ulcer to the left medial malleolus. Patient also gives history of active use of cocaine and heroin via snorting. He received Zosyn in the emergency center. We will start the patient on Kefzol. Local wound care will be addressed. Bone scan will be ordered. Blood cultures status received. Continue supportive care. Further recommendations as patient progresses. The above dictated assessment and findings were discussed with Dr. Kunz. The impression and plan of care have been directed as dictated. Conchis Rainey nurse practitioner acting as scribe for Dr. Kunz.
[2018-11-28] MEDS ORDERED: IPRATROPIUM 0.5 MG/2.5 ML NEBU INHALATION PRN (11:43)
[2018-11-28] MEDS ORDERED: FUROSEMIDE 20 MG TAB PO PRN (11:43)
[2018-11-28] MEDS: HYDROcodone/APAP 10-325MG 1 EACH TAB PO PRN (13:20)
--- NOTE | 2018-11-28 14:04 | P.HPIM ---
History of Present Illness 67-year-old male came in with wound in the left angle which is infected patient does have history of IV drug use when he was 30 years of age, doesn't appear to have hepatitis C with undetectable viral load still continues to use is not heroine and cocaine patient is found to have infected wound on the left ankle with fall swelling discharge wound cultures were obtained there even maggots in the wound when he was trying to clean it patient is admitted was started on broad-spectrum antibodies vancomycin and Zosyn infectious disease was consulted bone scan is being obtained ankle x-ray did not show any evidence of osteomyelitis. Review of Systems REVIEW OF SYSTEMS: CONSTITUTIONAL: No fever, no malaise, no fatigue. HEENT: No recent visual problems or hearing problems. Denied any sore throat. CARDIOVASCULAR: No chest pain, orthopnea, PND, no palpitations, no syncope. PULMONARY: No shortness of breath, no cough, no hemoptysis. GASTROINTESTINAL: No diarrhea, no nausea, no vomiting, no abdominal pain. NEUROLOGICAL: No headaches, no weakness, no numbness. HEMATOLOGICAL: Denies any bleeding or petechiae. GENITOURINARY: Denies any burning micturition, frequency, or urgency. MUSCULOSKELETAL/RHEUMATOLOGICAL: As mentioned in HPI ENDOCRINE: Denies any polyuria or polydipsia. The rest of the 14-point review of systems is negative. Past Medical History Past Medical History: Heart Failure, COPD, Hyperlipidemia, Hypertension, Rheumatoid Arthritis (RA), Skin Disorder, Vascular Disorder Additional Past Medical History / Comment(s): lt lower leg wounds, psoriasis, chronic back pain,depression,male sexual dysfunction,low testosterone,pvd, hx fracture right tib/fib. synovitis wrist, hx of cocaine use,hx alcohol abuse,leuk ocytosis, syncopal epidosed History of Any Multi-Drug Resistant Organisms: None Reported Past Surgical History: Joint Replacement, Tonsillectomy Additional Past Surgical History / Comment(s): bilateral hip replacement, rt kne e surgery with maria Past Anesthesia/Blood Transfusion Reactions: No Reported Reaction Past Psychological History: Depression Smoking Status: Current every day smoker Past Alcohol Use History: Occasional Additional Past Alcohol Use History / Comment(s): Patient is a smoker one pack per day for 40+ years. Patient is currently using cocaine and heroin by snorting. He does have history of IV drug abuse but has not used any IV for 30 years. Patient lives alone in his apartment. He does not have any pets. He does not work. 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 Past Drug Use History: Cocaine, Heroin Additional Drug Use History / Comment(s): pt states 30-40 years ago hx of alcohol and cocaine use - Past Family History Father Family Medical History: Cancer Mother Family Medical History: Cancer Medications and Allergies Home Medications Medication Instructions Recorded Confirmed Type HYDROcodone/APAP 10-325MG [[place] 1 tab PO Q6HR PRN 03/30/15 11/27/18 History 10-325] Loratadine [Claritin] 10 mg PO DAILY 03/30/15 11/27/18 History Omeprazole [PriLOSEC] 20 mg PO AC-BRKFST 03/30/15 11/27/18 History Simvastatin [Zocor] 40 mg PO HS 03/30/15 11/27/18 History Aspirin EC [Ecotrin Low Dose] 81 mg PO DAILY 12/29/15 11/27/18 History Ipratropium [place] [Atrovent Hfa] 2 puff INHALATION RT-QID PRN 12/29/15 11/27/18 History Multivitamins, Thera [Multivitamin] 1 tab PO DAILY 12/29/15 11/27/18 History Furosemide [Lasix] 20 mg PO DAILY PRN 03/07/17 11/27/18 History Allergies Allergy/AdvReac Type Severity Reaction Status Date / Time zinc oxide Allergy Rash/Hives Verified 11/27/18 23:30 Physical Exam Vitals: Vital Signs Temp Pulse Pulse Resp BP BP Pulse Ox 11/28/18 11:35 97.8 F 87 17 133/83 99 11/28/18 04:05 70 18 11/28/18 03:35 97.5 F L 70 18 175/96 99 11/28/18 01:51 76 18 143/82 100 11/28/18 01:14 66 18 171/87 98 11/27/18 23:14 97.6 F 43 L 17 171/103 99 Intake and Output 11/27/18 11/28/18 11/28/18 22:59 06:59 14:59 Intake Total 120 Output Total 1 Balance 119 Intake: Intake, IV Titration 120 Amount Piperacillin-Tazobactam 3 100 .375 gm In Sodium Chloride 0.9% 100 ml @ 200 mls/hr IVPB ONCE STA Rx#:[id number] Sodium Chloride 0.9% 1, 20 000 ml @ 20 mls/hr IV . Q24H [facility] Rx#:[id number] Output: Urine 1 Other: Voiding Method Urinal Urinal # Bowel Movements 1 Weight 77.111 kg PHYSICAL EXAMINATION: GENERAL: The patient is alert and oriented x3, not in any acute distress. Well developed, well nourished. HEENT: Pupils are round and equally reacting to light. EOMI. No scleral icterus. No conjunctival pallor. Normocephalic, atraumatic. No pharyngeal erythema. No thyromegaly. CARDIOVASCULAR: S1 and S2 present. No murmurs, rubs, or gallops. PULMONARY: Chest is clear to auscultation, no wheezing or crackles. ABDOMEN: Soft, nontender, nondistended, normoactive bowel sounds. No palpable organomegaly. MUSCULOSKELETAL: No joint swelling or deformity. EXTREMITIES: No cyanosis, clubbing, or pedal edema. Patient had an infected ulcer in the left medial malleolus with foul-smelling discharge. Patient also appears to be stage III to 4 NEUROLOGICAL: Gross neurological examination did not reveal any focal deficits. SKIN: No rashes. Results CBC & Chem 7: 11/28/18 01:00 11/28/18 01:00 Labs: Abnormal Lab Results - Last 24 Hours (Table) 11/28/18 11/28/18 Range/Units 01:00 01:00 MCHC 29.8 L (31.0-37.0) g/dL BUN 21 H (9-20) mg/dL Glucose 101 H (74-99) mg/dL Thrombosis Risk Factor Assmnt - Choose All That Apply Any of the Below Risk Factors Present?: Yes Each Factor Represents 1 point: Abnormal pulmonary function (COPD), Heart failure (<1month), Medical pt on bed rest Other Risk Factors: Yes Each Risk Factor Represents 2 Points: Age 61-74 years Other congenital or acquired thrombophilia - If yes, enter type in comment: No Thrombosis Risk Factor Assessment Total Risk Factor Score: 5 Thrombosis Risk Factor Assessment Level: High Risk Assessment and Plan Plan: -Infected ulcer in the left medial malleolus wound cultures as mentioned above patient appears to have peripheral vascular disease which is contributing to his ulcer. Local wound care infectious disease was consulted continue broad- spectrum antibiotics vancomycin and Zosyn. -COPD without any acute exacerbation patient continues to smoke smoking cessation counseling was provided -Hyperlipidemia -Hypertension -Intravascular disease -Depression For above-mentioned chronic medical problems patient will resume continued on appropriate home medications patient may need DVT prophylaxis with the subcutaneous heparin
--- NOTE | 2018-11-28 14:37 | NM ---
EXAMINATION TYPE: NM bone 3 phase DATE OF EXAM: 11/28/2018 COMPARISON: Left ankle 11/28/2018 HISTORY: Nonhealing wound medial malleolus left ankle Triple phase bone scintigraphy was performed following the injection of 22.8 mCi Tc 99m MDP. Immedia te images and 4 hours post injection images acquired. FINDINGS: Increased blood flow and blood pool activity noted to the medial left ankle. There is abnormal radio from physical uptake present at the talar dome on delayed imaging. Corresponding sclerosis, lucency i s noted on plain film. IMPRESSION: Indeterminate findings along the ankle mortise, talar dome, infection within the differential. Consid er ankle MRI or CT for better evaluation. Underlying cellulitis is suspected.
[2018-11-28] MEDS: HEPARIN SODIUM,PORCINE 5,000 UNIT/ML 1 ML VIAL SQ SCH (15:46)
[2018-11-28 16:40] LABS: Glucose,Whole Blood 105 mg/dL (75-99)
[2018-11-28] MEDS: FAMOTIDINE 20 MG TAB PO SCH (22:29)
[2018-11-28] MEDS: ATORVASTATIN 20 MG TAB PO SCH (22:30)
--- NOTE | 2018-11-28 22:42 | P.CON ---
Consult Note - . Consult date: 11/28/18 Assessment/Plan:: This is a 67-year-old -[place] man who gives history of having a wound on his left ankle that appears every 3 years. He denies any injury to the area. He does give history of IV drug use when he was young but none for 30 years. After much questioning, patient does admit that he is using heroin and cocaine but is snorting it. Patient is also an active smoker of one pack per day. He drinks alcohol occasionally. He denies history of diabetes. [facility] and at that time was under the care of Dr. Johansen. Patient states that he has a wound to his left ankle that appeared about 4-5 days ago. He noticed one day that there were maggots in the wound when he was trying to clean it. He has used peroxide and soap and then wraps the ankle tightly. He has not sought treatment for it. He came into [facility] emergency center for evaluation. He was found to be afebrile, white count 6.4, creatinine 1.08, blood sugar 101, lactic acid 1.5. Patient was given Zosyn in the emergency center and [facility]. Blood cultures status received. Ankle x-ray showed no displaced fracture.Please see the consult note is dictated by nurse practitioner Mrs. Conchsi Rainey. This 67-year-old male relates that he has a history of recurrent ulceration to the lower extremity on the basis of venous insufficiency from prior injection drug use, maybe exacerbated by some current heroin and cocaine use placed by snorting. Wound cultures are evaluated show evidence of prior MSSA and Citrobacter. Antibiotic therapy is initiated with Ancef at this time. Evaluation for underlying deeper infection by bone scan has been requested. Local wound care with therahoney has been initiated. Nutritional status is being evaluated and supplemented as needed. Unclear when his last TD Was given and may be required before his discharge. Dopplers are requested to further evaluate his vascular status. May require a vascular surgical evaluation. I agree with evaluation, assessment and plan as dictated by nurse practitioner Mrs. Conchis Rainey.
[2018-11-29] MEDS: HEPARIN SODIUM,PORCINE 5,000 UNIT/ML 1 ML VIAL SQ SCH ×4 (00:17→23:30)
[2018-11-29] MEDS: MORPHINE SULFATE 4 MG/ML SYRINGE IV PRN ×6 (00:18→23:30)
[2018-11-29] MEDS: SODIUM CHLORIDE 0.9% 1,000 ML IV SCH (01:29)
[2018-11-29] MEDS ORDERED: NON-FORMULARY DRUG (Omeprazole [Prilosec] 20 MG) PO SCH (07:30)
[2018-11-29] MEDS: ASPIRIN 81 MG PO SCH (09:00)
[2018-11-29] MEDS: PANTOPRAZOLE 40 MG TABLET PO SCH (09:00)
[2018-11-29] MEDS: HYDROcodone/APAP 10-325MG 1 EACH TAB PO PRN ×2 (09:00→19:14)
[2018-11-29] MEDS: FAMOTIDINE 20 MG TAB PO SCH ×2 (09:00→20:08)
--- NOTE | 2018-11-29 13:54 | P.PN ---
Subjective 67-year-old male was admitted the for ankle ulcer and cellulitis. Bone scan is inconclusive for any osteomyelitis. Patient is presently on ceftezole and wound cultures are not available. Infectious disease is following the patient patient may and up needing IV antibiotics. Constitutional: Denied any fatigue denied any fever. Cardio vascular: denied any chest pain, palpitations Gastrointestinal denied any nausea vomiting Pulmonary: Denied any shortness of breath cough Neurologic denied any new focal deficits All inpatient medications were reviewed and appropriate changes in these medications as dictated in the interval history and assessment and plan. Objective - Vital Signs Vital signs: Vital Signs Temp 96.8 F L 11/29/18 12:08 Pulse 69 11/29/18 12:08 Resp 20 11/29/18 12:08 BP 150/89 11/29/18 12:08 Pulse Ox 98 11/29/18 12:08 Intake & Output 11/28/18 11/29/18 11/29/18 18:59 06:59 18:59 Intake Total 50 210 Output Total 1 Balance 50 209 Intake: Intake, IV Titration 50 210 Amount Sodium Chloride 0.9% 1, 160 000 ml @ 20 mls/hr IV . Q24H [facility] Rx#:[id number] ceFAZolin 2 gm In Sodium 50 50 Chloride 0.9% 50 ml @ 100 mls/hr IVPB Q8HR [facility] Rx# :[id number] Output: Stool 1 Other: Voiding Method Urinal Urinal # Voids 1 - Exam PHYSICAL EXAMINATION: GENERAL: The patient is alert and oriented x3, not in any acute distress. Well developed, well nourished. HEENT: Pupils are round and equally reacting to light. EOMI. No scleral icterus. No conjunctival pallor. Normocephalic, atraumatic. No pharyngeal erythema. No thyromegaly. CARDIOVASCULAR: S1 and S2 present. No murmurs, rubs, or gallops. PULMONARY: Chest is clear to auscultation, no wheezing or crackles. ABDOMEN: Soft, nontender, nondistended, normoactive bowel sounds. No palpable organomegaly. MUSCULOSKELETAL: No joint swelling or deformity. EXTREMITIES: No cyanosis, clubbing, or pedal edema. Patient had an infected ulcer in the left medial malleolus with foul-smelling discharge. Patient also appears to be stage III to 4 NEUROLOGICAL: Gross neurological examination did not reveal any focal deficits. SKIN: No rashes. - Labs CBC & Chem 7: 11/28/18 01:00 11/28/18 01:00 Labs: Abnormal Lab Results - Last 24 Hours (Table) 11/28/18 Range/Units 16:39 POC Glucose (mg/dL) 105 H (75-99) mg/dL Microbiology - Last 24 Hours (Table) 11/28/18 01:00 Blood Culture - Preliminary Blood No Growth after 24 hours Assessment and Plan Plan: -Infected ulcer in the left medial malleolus wound cultures as mentioned above patient appears to have peripheral vascular disease which is contributing to his ulcer. Local wound care infectious disease was consulted continue ceftezolin -COPD without any acute exacerbation patient continues to smoke smoking cessation counseling was provided -Hyperlipidemia -Hypertension -Intravascular disease -Depression For above-mentioned chronic medical problems patient will resume continued on appropriate home medications patient may need DVT prophylaxis with the subcutaneous heparin
--- NOTE | 2018-11-29 17:11 | P.PN ---
Subjective Progress Note Date: 11/29/18 This is a 67-year-old -[place] man who gives history of having a wound on his left ankle that appears every 3 years. He denies any injury to the area. He does give history of IV drug use when he was young but none for 30 years. After much questioning, patient does admit that he is using heroin and cocaine but is snorting it. Patient is also an active smoker of one pack per day. He drinks alcohol occasionally. He denies history of diabetes. Patient was [facility] and at that time was under the care of Dr. Johansen. Patient states that he has a wound to his left ankle that appeared about 4-5 days ago. He noticed one day that there were maggots in the wound when he was trying to clean it. He has used peroxide and soap and then wraps the ankle tightly. He has not sought treatment for it. He came into [facility] emergency center for evaluation. He was found to be afebrile, white count 6.4, creatinine 1.08, blood sugar 101, lactic acid 1.5. Patient was given Zosyn in the emergency center and admitted to the [facility] floor. Blood cultures status received. Ankle x-ray showed no displaced fracture. 11/29/2018 the patient seems doing relatively well this point in time. The ulceration is tolerating current local wound care with the therahoney and wraps quite well. The patient is no other new complaints. Bone scan did not verify underlying bony infection. Objective - Vital Signs Vital signs: Vital Signs Temp 96.8 F L 11/29/18 12:08 Pulse 69 11/29/18 12:08 Resp 20 11/29/18 12:08 BP 150/89 11/29/18 12:08 Pulse Ox 98 11/29/18 12:08 Intake & Output 11/28/18 11/29/18 11/29/18 18:59 06:59 18:59 Intake Total 50 210 Output Total 1 200 Balance 50 209 -200 Intake: Intake, IV Titration 50 210 Amount Sodium Chloride 0.9% 1, 160 000 ml @ 20 mls/hr IV . Q24H [facility] Rx#:[id number] ceFAZolin 2 gm In Sodium 50 50 Chloride 0.9% 50 ml @ 100 mls/hr IVPB Q8HR [facility] Rx# :[id number] Output: Urine 200 Stool 1 Other: Voiding Method Urinal Urinal Urinal # Voids 1 - Exam Gen: This is a 67-year-old -[place] male. He is resting in bed and appears to be comfortable and in no acute distress HEENT: Head is atraumatic, normocephalic. Pupils equal, round. Sclerae is ani cteric. Conjunctiva pink. Mucous members of the mouth are moist. NECK: Supple. No JVD. No lymphadenopathy. No thyromegaly. LUNGS: Clear to auscultation. No wheezes or rhonchi. No intercostal retra ctions. HEART: Regular rate and rhythm. No murmur. ABDOMEN: Soft. Bowel sounds are present. No masses. No tenderness. EXTREMITIES: No pedal edema. No calf tenderness. Patient has an ulcer to the l eft medial malleolus. Follow odor noted. NEUROLOGICAL: Patient is awake, alert and oriented x3. - Labs CBC & Chem 7: 11/28/18 01:00 11/28/18 01:00 Labs: Microbiology - Last 24 Hours (Table) 11/28/18 01:00 Blood Culture - Preliminary Blood No Growth after 24 hours Laboratory Results WBC 6.4 k/uL (3.8-10.6) 11/28/18 01:00 RBC 4.81 m/uL (4.30-5.90) 11/28/18 01:00 Hgb 13.3 gm/dL (13.0-17.5) 11/28/18 01:00 Hct 44.6 % (39.0-53.0) 11/28/18 01:00 MCV 92.8 fL (80.0-100.0) 11/28/18 01:00 MCH 27.6 pg (25.0-35.0) 11/28/18 01:00 MCHC 29.8 g/dL (31.0-37.0) L 11/28/18 01:00 RDW 15.3 % (11.5-15.5) 11/28/18 01:00 Plt Count 415 k/uL (150-450) 11/28/18 01:00 Neutrophils % 54 % 11/28/18 01:00 Lymphocytes % 35 % 11/28/18 01:00 Monocytes % 6 % 11/28/18 01:00 Eosinophils % 3 % 11/28/18 01:00 Basophils % 1 % 11/28/18 01:00 Neutrophils # 3.4 k/uL (1.3-7.7) 11/28/18 01:00 Lymphocytes # 2.3 k/uL (1.0-4.8) 11/28/18 01:00 Monocytes # 0.4 k/uL (0-1.0) 11/28/18 01:00 Eosinophils # 0.2 k/uL (0-0.7) 11/28/18 01:00 Basophils # 0.0 k/uL (0-0.2) 11/28/18 01:00 PT 10.4 sec (9.0-12.0) 11/28/18 01:00 INR 1.0 (<1.2) 11/28/18 01:00 Sodium 142 mmol/L (137-145) 11/28/18 01:00 Potassium 4.0 mmol/L (3.5-5.1) 11/28/18 01:00 Chloride 107 mmol/L (98-107) 11/28/18 01:00 Carbon Dioxide 27 mmol/L (22-30) 11/28/18 01:00 Anion Gap 8 mmol/L 11/28/18 01:00 BUN 21 mg/dL (9-20) H 11/28/18 01:00 Creatinine 1.08 mg/dL (0.66-1.25) 11/28/18 01:00 Est GFR (CKD-EPI)AfAm 82 (>60 ml/min/1.73 sqM) 11/28/18 01:00 Est GFR (CKD-EPI)NonAf 71 (>60 ml/min/1.73 sqM) 11/28/18 01:00 Glucose 101 mg/dL (74-99) H 11/28/18 01:00 POC Glucose (mg/dL) 105 mg/dL (75-99) H 11/28/18 16:39 POC Glu Applied Behavior Specialist ID Madisyn Silva 11/28/18 16:39 Plasma Lactic Acid Issac 1.5 mmol/L (0.7-2.0) 11/28/18 01:00 Calcium 9.3 mg/dL (8.4-10.2) 11/28/18 01:00 Microbiology 11/28/18 01:00 Blood Blood Culture - Preliminary No Growth after 24 hours Assessment and Plan (1) Venous insufficiency of left leg Narrative/Plan: This 67-year-old male relates that he has a history of recurrent ulceration to the lower extremity on the basis of venous insufficiency from prior injection drug use, maybe exacerbated by some current heroin and cocaine use placed by snorting. Wound cultures are evaluated show evidence of prior MSSA and Citrobacter. Antibiotic therapy is initiated with Ancef at this time. Evaluation for underlying deeper infection by bone scan has been requested. Local wound care with therahoney has been initiated. Nutritional status is being evaluated and supplemented as needed. Unclear when his last TD Was given and may be required before his discharge. Dopplers are requested to further evaluate his vascular status 11/29/2018 the patient is having some improvement but is still having some drainage from the ulcer site. Dopplers are pending at this point in time. Concerns to severe peripheral vascular disease. May require vascular evaluations. At this time IV access and outpatient intravenous antibiotic therapy with Ancef 2 g IV piggyback areata versus been requested I believe this would be occurring at a rehab facility. Local wound care continues with the therahoney product. If possible follow-up in the wound healing Center. Current Visit: No Status: Acute Code(s): I87.2 - VENOUS INSUFFICIENCY (CHRONIC) (PERIPHERAL) SNOMED Code(s): 079860514
[2018-11-29] MEDS: ATORVASTATIN 20 MG TAB PO SCH (20:08)
[2018-11-30] MEDS: MORPHINE SULFATE 4 MG/ML SYRINGE IV PRN ×3 (06:55→19:35)
[2018-11-30] MEDS: HEPARIN SODIUM,PORCINE 5,000 UNIT/ML 1 ML VIAL SQ SCH ×3 (10:21→23:36)
[2018-11-30] MEDS: PANTOPRAZOLE 40 MG TABLET PO SCH (10:21)
[2018-11-30] MEDS: HYDROcodone/APAP 10-325MG 1 EACH TAB PO PRN ×2 (10:21→17:08)
[2018-11-30] MEDS: FAMOTIDINE 20 MG TAB PO SCH ×2 (10:21→20:29)
[2018-11-30] MEDS: ASPIRIN 81 MG PO SCH (10:21)
[2018-11-30] MEDS: SODIUM CHLORIDE 0.9% 1,000 ML IV SCH (11:33)
--- NOTE | 2018-11-30 14:48 | P.PN ---
Subjective 67-year-old male was admitted the for ankle ulcer and cellulitis. Bone scan is inconclusive for any osteomyelitis. Patient is presently on ceftezole and wound cultures are not available. Infectious disease is following the patient patient september and up needing IV antibiotics. 11/30/2018 Wound cultures showing gram-positive cocci Constitutional: Denied any fatigue denied any fever. Cardio vascular: denied any chest pain, palpitations Gastrointestinal denied any nausea vomiting Pulmonary: Denied any shortness of breath cough Neurologic denied any new focal deficits All inpatient medications were reviewed and appropriate changes in these me dications as dictated in the interval history and assessment and plan. Objective - Vital Signs Vital signs: Vital Signs Temp 97.0 F L 11/30/18 11:55 Pulse 65 11/30/18 11:55 Resp 16 11/30/18 11:55 BP 125/93 11/30/18 11:55 Pulse Ox 98 11/30/18 11:55 Intake & Output 11/29/18 11/30/18 11/30/18 18:59 06:59 18:59 Intake Total 1080 810 Output Total 200 1100 Balance -200 -20 810 Weight 77.2 kg Intake: Intake, IV Titration 490 210 Amount Sodium Chloride 0.9% 1, 440 160 000 ml @ 20 mls/hr IV . Q24H [facility] Rx#:[id number] ceFAZolin 2 gm In Sodium 50 50 Chloride 0.9% 50 ml @ 100 mls/hr IVPB Q8HR [facility] Rx# :[id number] Oral 590 600 Output: Urine 200 1100 Other: Voiding Method Urinal Urinal Urinal # Voids 2 - Exam PHYSICAL EXAMINATION: GENERAL: The patient is alert and oriented x3, not in any acute distress. Well developed, well nourished. HEENT: Pupils are round and equally reacting to light. EOMI. No scleral icterus. No conjunctival pallor. Normocephalic, atraumatic. No pharyngeal erythema. No thyromegaly. CARDIOVASCULAR: S1 and S2 present. No murmurs, rubs, or gallops. PULMONARY: Chest is clear to auscultation, no wheezing or crackles. ABDOMEN: Soft, nontender, nondistended, normoactive bowel sounds. No palpable organomegaly. MUSCULOSKELETAL: No joint swelling or deformity. EXTREMITIES: No cyanosis, clubbing, or pedal edema. Patient had an infected ulcer in the left medial malleolus with foul-smelling discharge. Patient also appears to be stage III to 4 NEUROLOGICAL: Gross neurological examination did not reveal any focal deficits. SKIN: No rashes. - Labs CBC & Chem 7: 11/28/18 01:00 11/28/18 01:00 Labs: Microbiology - Last 24 Hours (Table) 11/28/18 01:00 Blood Culture - Preliminary Blood No Growth after 48 hours Assessment and Plan Plan: -Infected ulcer in the left medial malleolus wound cultures as mentioned above patient appears to have peripheral vascular disease which is contributing to his ulcer. Local wound care infectious disease was consulted continue ceftezolin -COPD without any acute exacerbation patient continues to smoke smoking cessation counseling was provided -Hyperlipidemia -Hypertension -Intravascular disease -Depression For above-mentioned chronic medical problems patient will resume continued on appropriate home medications patient may need DVT prophylaxis with the subcutaneous heparin
[2018-11-30] MEDS: ATORVASTATIN 20 MG TAB PO SCH (20:29)
[2018-12-01] MEDS: SODIUM CHLORIDE 0.9% 1,000 ML IV SCH (04:22)
[2018-12-01] MEDS: MORPHINE SULFATE 4 MG/ML SYRINGE IV PRN ×3 (05:23→19:58)
[2018-12-01] MEDS: FAMOTIDINE 20 MG TAB PO SCH ×2 (07:56→19:59)
[2018-12-01] MEDS: PANTOPRAZOLE 40 MG TABLET PO SCH (07:56)
[2018-12-01] MEDS: HYDROcodone/APAP 10-325MG 1 EACH TAB PO PRN ×2 (07:56→15:35)
[2018-12-01] MEDS: ASPIRIN 81 MG PO SCH (07:56)
[2018-12-01] MEDS: HEPARIN SODIUM,PORCINE 5,000 UNIT/ML 1 ML VIAL SQ SCH ×2 (07:56→15:35)
--- NOTE | 2018-12-01 13:39 | P.PN ---
Subjective 67-year-old male was admitted the for ankle ulcer and cellulitis. Bone scan is inconclusive for any osteomyelitis. Patient is presently on ceftezole and wound cultures are not available. Infectious disease is following the patient patient september and up needing IV antibiotics. 12/01/2018 No overnight events blood cultures so far negative Constitutional: Denied any fatigue denied any fever. Cardio vascular: denied any chest pain, palpitations Gastrointestinal denied any nausea vomiting Pulmonary: Denied any shortness of breath cough Neurologic denied any new focal deficits All inpatient medications were reviewed and appropriate changes in these medications as dictated in the interval history and assessment and plan. Objective - Vital Signs Vital signs: Vital Signs Temp 97.7 F 12/01/18 05:00 Pulse 64 12/01/18 05:00 Resp 16 12/01/18 05:00 BP 167/106 12/01/18 05:00 Pulse Ox 95 12/01/18 05:00 Intake & Output 11/30/18 12/01/18 12/01/18 18:59 06:59 18:59 Intake Total 810 1260 760 Output Total 1100 725 Balance 810 160 35 Weight 77.1 kg Intake: Intake, IV Titration 210 80 160 Amount Sodium Chloride 0.9% 1, 160 80 160 000 ml @ 20 mls/hr IV . Q24H [facility] Rx#:[id number] ceFAZolin 2 gm In Sodium 50 Chloride 0.9% 50 ml @ 100 mls/hr IVPB Q8HR [facility] Rx# :[id number] Oral 600 1180 600 Output: Urine 1100 725 Other: Voiding Method Urinal Urinal Urinal # Voids 2 2 2 # Bowel Movements 1 - Exam PHYSICAL EXAMINATION: GENERAL: The patient is alert and oriented x3, not in any acute distress. Well developed, well nourished. HEENT: Pupils are round and equally reacting to light. EOMI. No scleral icterus. No conjunctival pallor. Normocephalic, atraumatic. No pharyngeal erythema. No thyromegaly. CARDIOVASCULAR: S1 and S2 present. No murmurs, rubs, or gallops. PULMONARY: Chest is clear to auscultation, no wheezing or crackles. ABDOMEN: Soft, nontender, nondistended, normoactive bowel sounds. No palpable organomegaly. MUSCULOSKELETAL: No joint swelling or deformity. EXTREMITIES: No cyanosis, clubbing, or pedal edema. Patient had an infected ulcer in the left medial malleolus with foul-smelling discharge. Patient also appears to be stage III to 4 NEUROLOGICAL: Gross neurological examination did not reveal any focal deficits. SKIN: No rashes. - Labs CBC & Chem 7: 11/28/18 01:00 11/28/18 01:00 Labs: Microbiology - Last 24 Hours (Table) 11/28/18 01:00 Blood Culture - Preliminary Blood No Growth after 72 hours Assessment and Plan Plan: -Infected ulcer in the left medial malleolus wound cultures as mentioned above patient appears to have peripheral vascular disease which is contributing to his ulcer. Local wound care infectious disease was consulted continue ceftezolin -COPD without any acute exacerbation patient continues to smoke smoking cessation counseling was provided -Hyperlipidemia -Hypertension -Intravascular disease -Depression For above-mentioned chronic medical problems patient will resume continued on appropriate home medications patient may need DVT prophylaxis with the subcutaneous heparin
[2018-12-01] MEDS: ATORVASTATIN 20 MG TAB PO SCH (19:59)
[2018-12-02] MEDS: HEPARIN SODIUM,PORCINE 5,000 UNIT/ML 1 ML VIAL SQ SCH ×3 (00:35→15:18)
[2018-12-02] MEDS: SODIUM CHLORIDE 0.9% 1,000 ML IV SCH (01:31)
[2018-12-02] MEDS: HYDROcodone/APAP 10-325MG 1 EACH TAB PO PRN ×2 (05:25→14:21)
[2018-12-02] MEDS: ASPIRIN 81 MG PO SCH (08:09)
[2018-12-02] MEDS: MORPHINE SULFATE 4 MG/ML SYRINGE IV PRN ×2 (08:09→17:56)
[2018-12-02] MEDS: FAMOTIDINE 20 MG TAB PO SCH ×2 (08:09→20:36)
[2018-12-02] MEDS: ATORVASTATIN 20 MG TAB PO SCH (20:37)
--- NOTE | 2018-12-02 22:01 | P.PN ---
Subjective Progress Note Date: 12/02/18 Principal diagnosis: ( Infected Left medial malleolus ankle ulcer 67-year-old male was admitted the for ankle ulcer and cellulitis. Bone scan is inconclusive for any osteomyelitis. Patient is presently on ceftezole and wound cultures are not available. Infectious disease is following the patient patient may and up needing IV antibiotics. 12/01/2018 No overnight events blood cultures so far negative Constitutional: Denied any fatigue denied any fever. Cardio vascular: denied any chest pain, palpitations Gastrointestinal denied any nausea vomiting Pulmonary: Denied any shortness of breath cough Neurologic denied any new focal deficits All inpatient medications were reviewed and appropriate changes in these medications as dictated in the interval history and assessment and plan. Objective - Vital Signs Vital signs: Vital Signs Temp 98.0 F 12/02/18 12:15 Pulse 51 L 12/02/18 12:15 Resp 16 12/02/18 14:44 BP 150/83 12/02/18 12:15 Pulse Ox 99 12/02/18 12:15 Intake & Output 12/02/18 12/02/18 12/03/18 06:59 18:59 06:59 Intake Total 320 Output Total 1650 1650 350 Balance -1650 -1650 -30 Weight 71.9 kg Intake: Oral 320 Output: Urine 1650 1650 350 Stool 0 0 Other: Voiding Method Urinal Urinal # Voids 0 3 0 - Exam GENERAL: The patient is alert and oriented x3, not in any acute distress. Well developed, well nourished. HEENT: Pupils are round and equally reacting to light. EOMI. No scleral icterus. No conjunctival pallor. Normocephalic, atraumatic. No pharyngeal erythema. No t hyromegaly. CARDIOVASCULAR: S1 and S2 present. No murmurs, rubs, or gallops. PULMONARY: Chest is clear to auscultation, no wheezing or crackles. ABDOMEN: Soft, nontender, nondistended, normoactive bowel sounds. No palpable organomegaly. MUSCULOSKELETAL: No joint swelling or deformity. EXTREMITIES: No cyanosis, clubbing, or pedal edema. Patient had an infected ulcer in the left medial malleolus with foul-smelling discharge. Patient also appears to be stage III to 4 NEUROLOGICAL: Gross neurological examination did not reveal any focal deficits. SKIN: No rashes. - Labs CBC & Chem 7: 11/28/18 01:00 11/28/18 01:00 Labs: Microbiology - Last 24 Hours (Table) 11/28/18 01:00 Blood Culture - Preliminary Blood No Growth after 96 hours Assessment and Plan Assessment: -Infected ulcer in the left medial malleolus wound cultures as mentioned above patient appears to have peripheral vascular disease which is contributing to his ulcer. Local wound care infectious disease was consulted continue ceftezolin -COPD without any acute exacerbation patient continues to smoke smoking cessation counseling was provided -Hyperlipidemia -Hypertension -Intravascular disease -Depression For above-mentioned chronic medical problems patient will resume continued on appropriate home medications patient may need DVT prophylaxis with the subcutaneous heparin Time with Patient: Greater than 30
[2018-12-03] MEDS: HEPARIN SODIUM,PORCINE 5,000 UNIT/ML 1 ML VIAL SQ SCH ×4 (00:25→23:20)
[2018-12-03] MEDS: SODIUM CHLORIDE 0.9% 1,000 ML IV SCH (00:28)
[2018-12-03] MEDS: HYDROcodone/APAP 10-325MG 1 EACH TAB PO PRN ×3 (00:31→16:44)
[2018-12-03] MEDS: MORPHINE SULFATE 4 MG/ML SYRINGE IV PRN ×3 (06:50→20:29)
[2018-12-03] MEDS: ASPIRIN 81 MG PO SCH (08:03)
[2018-12-03] MEDS: FAMOTIDINE 20 MG TAB PO SCH ×2 (08:03→20:29)
[2018-12-03 12:47] LABS: African American GFR (CKD) >90 (>60 ml/min/1.73 sqM); Anion Gap 6 mmol/L; Blood Urea Nitrogen 17 mg/dL (9-20); Calcium 9.2 mg/dL (8.4-10.2); Carbon Dioxide 30 mmol/L (22-30); Chloride 106 mmol/L (98-107); Glucose 93 mg/dL (74-99); Potassium 4.9 mmol/L (3.5-5.1); Sodium 142 mmol/L (137-145)
[2018-12-03 14:47] LABS: Basophils # (A) 0.1 k/uL (0-0.2); Basophils % (A) 1 %; Eosinophils # (A) 0.4 k/uL (0-0.7); Eosinophils % (A) 6 %; HCT 46.1 % (39.0-53.0); HGB 13.2 gm/dL (13.0-17.5); Hypochromasia Moderate; Lymphocytes # (A) 2.3 k/uL (1.0-4.8); Lymphocytes % (A) 39 %; MCH 27.2 pg (25.0-35.0); MCHC 28.7 g/dL (31.0-37.0); Mean Platelet Volume 7.6; Monocytes # (A) 0.4 k/uL (0-1.0); Monocytes % (A) 7 %; Neutrophils # (A) 2.6 k/uL (1.3-7.7); Neutrophils % (A) 45 %; Platelet Count 376 k/uL (150-450); RBC 4.85 m/uL (4.30-5.90); RDW 15.6 % (11.5-15.5); WBC 5.8 k/uL (3.8-10.6)
[2018-12-03] MEDS: ATORVASTATIN 20 MG TAB PO SCH (20:29)
[2018-12-04] MEDS: SODIUM CHLORIDE 0.9% 1,000 ML IV SCH (02:42)
[2018-12-04] MEDS: MORPHINE SULFATE 4 MG/ML SYRINGE IV PRN ×3 (07:35→19:20)
[2018-12-04] MEDS: ASPIRIN 81 MG PO SCH (07:35)
[2018-12-04] MEDS: FAMOTIDINE 20 MG TAB PO SCH ×2 (07:35→21:27)
[2018-12-04] MEDS: HEPARIN SODIUM,PORCINE 5,000 UNIT/ML 1 ML VIAL SQ SCH ×2 (07:35→17:13)
--- NOTE | 2018-12-04 09:32 | P.ARTDOP ---
Arterial Doppler LOWER EXTREMITY ARTERIAL DOPPLER: DATE OF SERVICE: 11/29/2018 Reason for study: Ankle ulcer. Doppler waveforms: Multiphasic bilaterally throughout. Pulse volume recording: Excellent digital waveforms. Pressure gradients: None. Ankle-brachial indices: Greater than 1 bilaterally. Toe pressures: 154 on the right, 150 on the left Impression: Normal study.
[2018-12-04 11:58] VITALS: BMI 23.8
[2018-12-04] MEDS: HYDROcodone/APAP 10-325MG 1 EACH TAB PO PRN (17:13)
[2018-12-04] MEDS: ATORVASTATIN 20 MG TAB PO SCH (21:27)
[2018-12-05] MEDS: HEPARIN SODIUM,PORCINE 5,000 UNIT/ML 1 ML VIAL SQ SCH ×4 (00:11→22:59)
--- NOTE | 2018-12-05 00:27 | P.PN ---
Subjective Progress Note Date: 12/03/18 Principal diagnosis: ( Infected Left medial malleolus ankle ulcer 67-year-old male was admitted the for ankle ulcer and cellulitis. Bone scan is inconclusive for any osteomyelitis. Patient is presently on ceftezole and wound cultures are not available. Infectious disease is following the patient patient may and up needing IV antibiotics. 12/01/2018 No overnight events blood cultures so far negative 12/03/2018 Patient denied any complaints of chest pain or short of breath. Left leg swelling is still present. Wound is is bandaged at this time. Patient continues to be on Ancef as per ID recommendations. Continued on wound care. Arterial duplex scan will be done. Ankle-brachial index. Constitutional: Denied any fatigue denied any fever. Cardio vascular: denied any chest pain, palpitations Gastrointestinal denied any nausea vomiting Pulmonary: Denied any shortness of breath cough Neurologic denied any new focal deficits All inpatient medications were reviewed and appropriate changes in these medications as dictated in the interval history and assessment and plan. Objective - Vital Signs Vital signs: Vital Signs Temp 97.4 F L 12/03/18 12:20 Pulse 73 12/03/18 12:20 Resp 16 12/03/18 12:20 BP 148/74 12/03/18 12:20 Pulse Ox 99 12/03/18 12:20 Intake & Output 12/03/18 12/03/18 12/04/18 06:59 18:59 06:59 Intake Total 440 Output Total 775 Balance -335 Weight 72.6 kg Intake: Oral 440 Output: Urine 775 Stool 0 Other: Voiding Method Urinal Urinal # Voids 0 4 # Bowel Movements 1 - Exam GENERAL: The patient is alert and oriented x3, not in any acute distress. Well developed, well nourished. HEENT: Pupils are round and equally reacting to light. EOMI. No scleral icterus. No conjunctival pallor. Normocephalic, atraumatic. No pharyngeal erythema. No thyromegaly. CARDIOVASCULAR: S1 and S2 present. No murmurs, rubs, or gallops. PULMONARY: Chest is clear to auscultation, no wheezing or crackles. ABDOMEN: Soft, nontender, nondistended, normoactive bowel sounds. No palpable organomegaly. MUSCULOSKELETAL: No joint swelling or deformity. EXTREMITIES: No cyanosis, clubbing, or pedal edema. Patient had an infected ulcer in the left medial malleolus with foul-smelling discharge. Patient also appears to be stage III to 4 NEUROLOGICAL: Gross neurological examination did not reveal any focal deficits. SKIN: No rashes. - Labs CBC & Chem 7: 12/03/18 12:07 12/03/18 12:07 Labs: Abnormal Lab Results - Last 24 Hours (Table) 12/03/18 Range/Units 12:07 MCHC 28.7 L (31.0-37.0) g/dL RDW 15.6 H (11.5-15.5) % Microbiology - Last 24 Hours (Table) 11/28/18 01:00 Blood Culture - Preliminary Blood No Growth after 120 hours Assessment and Plan Assessment: -Infected ulcer in the left medial malleolus wound cultures as mentioned above patient appears to have peripheral vascular disease which is contributing to his ulcer. Local wound care infectious disease was consulted continue ceftezolin -COPD without any acute exacerbation patient continues to smoke smoking cessation counseling was provided -Hyperlipidemia -Hypertension -Intravascular disease -Depression For above-mentioned chronic medical problems patient will resume continued on appropriate home medications patient may need DVT prophylaxis with the subcutaneous heparin Time with Patient: Greater than 30
--- NOTE | 2018-12-05 00:29 | P.PN ---
Subjective Progress Note Date: 12/04/18 Principal diagnosis: ( Infected Left medial malleolus ankle ulcer 67-year-old male was admitted the for ankle ulcer and cellulitis. Bone scan is inconclusive for any osteomyelitis. Patient is presently on ceftezole and wound cultures are not available. Infectious disease is following the patient patient may and up needing IV antibiotics. 12/01/2018 No overnight events blood cultures so far negative 12/03/2018 Patient denied any complaints of chest pain or short of breath. Left leg swelling is still present. Wound is is bandaged at this time. Patient continues to be on Ancef as per ID recommendations. Continued on wound care. Arterial duplex scan will be done. Ankle-brachial index. 12/04/2018 Patient appears to be comfortable and lying in the bed. Still complaining of left leg pain. No fever no chills. No other acute overnight issues. Continued on IV antibiotics. Anticipate discharge with final antibiotic recommendations per ID. Constitutional: Denied any fatigue denied any fever. Cardio vascular: denied any chest pain, palpitations Gastrointestinal denied any nausea vomiting Pulmonary: Denied any shortness of breath cough Neurologic denied any new focal deficits All inpatient medications were reviewed and appropriate changes in these medica tions as dictated in the interval history and assessment and plan. Objective - Vital Signs Vital signs: Vital Signs Temp 97.0 F L 12/04/18 14:20 Pulse 63 12/04/18 14:20 Resp 16 12/04/18 14:20 BP 168/89 12/04/18 14:20 Pulse Ox 99 12/04/18 14:20 Intake & Output 12/04/18 12/04/18 12/05/18 06:59 18:59 06:59 Intake Total 300 1050 Output Total 1150 Balance -850 1050 Weight 75.5 kg 75.5 kg Intake: Oral 300 1050 Output: Urine 1150 Other: Voiding Method Urinal Urinal # Voids 3 # Bowel Movements 1 - Exam GENERAL: The patient is alert and oriented x3, not in any acute distress. Well developed, well nourished. HEENT: Pupils are round and equally reacting to light. EOMI. No scleral icterus. No conjunctival pallor. Normocephalic, atraumatic. No pharyngeal erythema. No thyromegaly. CARDIOVASCULAR: S1 and S2 present. No murmurs, rubs, or gallops. PULMONARY: Chest is clear to auscultation, no wheezing or crackles. ABDOMEN: Soft, nontender, nondistended, normoactive bowel sounds. No palpable organomegaly. MUSCULOSKELETAL: No joint swelling or deformity. EXTREMITIES: No cyanosis, clubbing, or pedal edema. Patient had an infected ulcer in the left medial malleolus with foul-smelling discharge. Patient also appears to be stage III to 4 NEUROLOGICAL: Gross neurological examination did not reveal any focal deficits. SKIN: No rashes. - Labs CBC & Chem 7: 12/03/18 12:07 12/03/18 12:07 Labs: Microbiology - Last 24 Hours (Table) 11/28/18 01:00 Blood Culture - Final Blood No Growth after 144 hours Assessment and Plan Assessment: -Infected ulcer in the left medial malleolus wound . Arterial duplex showed normal ankle-brachial index. Local wound care infectious disease was consulted continue cefazolin -COPD without any acute exacerbation patient continues to smoke smoking ajit sation counseling was provided -Hyperlipidemia -Hypertension -Intravascular disease -Depression For above-mentioned chronic medical problems patient will resume continued on appropriate home medications patient may need DVT prophylaxis with the subcutaneous heparin Time with Patient: Greater than 30
[2018-12-05] MEDS: SODIUM CHLORIDE 0.9% 1,000 ML IV SCH (02:24)
[2018-12-05] MEDS: FAMOTIDINE 20 MG TAB PO SCH ×2 (07:28→19:35)
[2018-12-05] MEDS: MORPHINE SULFATE 4 MG/ML SYRINGE IV PRN ×2 (07:33→12:32)
[2018-12-05] MEDS: ASPIRIN 81 MG PO SCH (07:41)
[2018-12-05] MEDS ORDERED: LIDOCAINE 1% INJ 10MG/ML (20 ML MDV) SQ ONE (13:37)
[2018-12-05] MEDS: HYDROcodone/APAP 10-325MG 1 EACH TAB PO PRN ×2 (14:51→21:12)
--- NOTE | 2018-12-05 16:34 | IR ---
EXAMINATION TYPE: IR cvc insert >=5 years DATE OF EXAM: 12/05/2018 COMPARISON: NONE CLINICAL HISTORY: Infection Needs long-term intravenous access for antibiotics. PROCEDURE: After informed consent, the skin overlying the left brachial vein was localized with ultrasound and n oted to be compressible and patent. An ultrasound image was obtained and submitted on the patient's chart. The overlying skin was prepped and draped and Lidocaine was used for local anesthesia. A ski n jax was made with a scalpel. Access was gained to the vein under ultrasound guidance with a 21 ga uge needle and a 0.018 inch wire was advanced. Access site was dilated with Peel-Away sheath and cat heter tailored to the appropriate length and advanced such that the distal tip is at the cavoatrial j unction. Spot image was obtained verifying placement. Catheter was fixed to the skin and a sterile dressing was placed following hemostasis. Catheter was aspirated and flushed with saline. Patient w as discharged in stable condition without complication. Maximal barrier technique is utilized. Ultra sound image is documented on the chart. Ultrasound used with sterile technique. Fluoro time and fluoroscopic images submitted to document procedure: 454 intraoperative images, 1.09 minutes fluoroscopy time IMPRESSION: STATUS POST ULTRASOUND AND FLUOROSCOPIC GUIDED PICC LINE PLACEMENT, READY FOR USE. THIS PROCEDURE WAS PERFORMED BY THE UNDERSIGNED.
[2018-12-05] MEDS: ATORVASTATIN 20 MG TAB PO SCH (19:35)
--- NOTE | 2018-12-06 00:01 | P.PN ---
Subjective Progress Note Date: 12/05/18 Principal diagnosis: ( Infected Left medial malleolus ankle ulcer 67-year-old male was admitted the for ankle ulcer and cellulitis. Bone scan is inconclusive for any osteomyelitis. Patient is presently on ceftezole and wound cultures are not available. Infectious disease is following the patient patient may and up needing IV antibiotics. 12/01/2018 No overnight events blood cultures so far negative 12/03/2018 Patient denied any complaints of chest pain or short of breath. Left leg swelling is still present. Wound is is bandaged at this time. Patient continues to be on Ancef as per ID recommendations. Continued on wound care. Arterial duplex scan will be done. Ankle-brachial index. 12/04/2018 Patient appears to be comfortable and lying in the bed. Still complaining of left leg pain. No fever no chills. No other acute overnight issues. Continued on IV antibiotics. Anticipate discharge with final antibiotic recommendations per ID. 12/05/2018 Patient is sitting in a chair comfortably. Still complaining of left leg pain. Wound care is being continued. ID recommends antibiotics through PICC line. Anticipate discharged tomorrow. Continue with [place] for pain management Constitutional: Denied any fatigue denied any fever. Cardio vascular: denied any chest pain, palpitations Gastrointestinal denied any nausea vomiting Pulmonary: Denied any shortness of breath cough Neurologic denied any new focal deficits All inpatient medications were reviewed and appropriate changes in these medications as dictated in the interval history and assessment and plan. Objective - Vital Signs Vital signs: Vital Signs Temp 97.3 F L 12/05/18 14:55 Pulse 54 L 12/05/18 14:55 Resp 18 12/05/18 14:55 BP 172/70 12/05/18 14:55 Pulse Ox 99 12/05/18 14:55 Intake & Output 12/04/18 12/05/18 12/05/18 18:59 06:59 18:59 Intake Total 1050 850 100 Balance 1050 850 100 Weight 75.5 kg Intake: Intake, IV Titration 100 Amount ceFAZolin 2 gm In Sodium 100 Chloride 0.9% 50 ml @ 100 mls/hr IVPB Q8HR [facility] Rx# :[id number] Oral 1050 850 Other: Voiding Method Urinal Urinal # Voids 3 3 # Bowel Movements 1 1 - Exam GENERAL: The patient is alert and oriented x3, not in any acute distress. Well developed, well nourished. HEENT: Pupils are round and equally reacting to light. EOMI. No scleral icterus. No conjunctival pallor. Normocephalic, atraumatic. No pharyngeal erythema. No thyromegaly. CARDIOVASCULAR: S1 and S2 present. No murmurs, rubs, or gallops. PULMONARY: Chest is clear to auscultation, no wheezing or crackles. ABDOMEN: Soft, nontender, nondistended, normoactive bowel sounds. No palpable organomegaly. MUSCULOSKELETAL: No joint swelling or deformity. EXTREMITIES: No cyanosis, clubbing, or pedal edema. Patient had an infected ulcer in the left medial malleolus with foul-smelling discharge. Patient also appears to be stage III to 4 NEUROLOGICAL: Gross neurological examination did not reveal any focal deficits. SKIN: No rashes. - Labs CBC & Chem 7: 12/03/18 12:07 12/03/18 12:07 Assessment and Plan Assessment: -Infected ulcer in the left medial malleolus wound . Arterial duplex showed normal ankle-brachial index. Local wound care infectious disease was consulted continue cefazolin -COPD without any acute exacerbation patient continues to smoke smoking cessation counseling was provided -Hyperlipidemia -Hypertension -Intravascular disease -Depression For above-mentioned chronic medical problems patient will resume continued on appropriate home medications patient may need DVT prophylaxis with the subcutaneous heparin Time with Patient: Greater than 30
[2018-12-06] MEDS: SODIUM CHLORIDE 0.9% 1,000 ML IV SCH (01:33)
[2018-12-06] MEDS: HYDROcodone/APAP 10-325MG 1 EACH TAB PO PRN ×3 (05:21→17:30)
[2018-12-06] MEDS: ASPIRIN 81 MG PO SCH (07:41)
[2018-12-06] MEDS: HEPARIN SODIUM,PORCINE 5,000 UNIT/ML 1 ML VIAL SQ SCH ×3 (07:41→23:32)
[2018-12-06] MEDS: FAMOTIDINE 20 MG TAB PO SCH ×2 (07:41→21:28)
--- NOTE | 2018-12-06 18:32 | PN ---
PROGRESS NOTE DATE OF SERVICE: 12/06/2018. REASON FOR FOLLOWUP: Right leg wound and cellulitis. HISTORY OF PRESENT ILLNESS: The patient is a 67 -year-old male who has been admitted in the hospital 11/27/2018 for left ankle wound and cellulitis. The patient did have a history of previous history of left ankle wound. However, this wound currently opened up about 4- 5 days before the presentation to the hospital. Apparently the patient did see some maggots when he was trying to clean the wound with peroxide and wrapping it without significant improvement. The patient presented to the [facility] ER. The patient has been admitted in the hospital. Repeat blood culture has been negative so far. The patient has been evaluated by Dr. Kunz during this admission and currently has been getting cefazolin 2 g q.8 hours with the patient antibiotics falling off and need for a PICC line. I was asked to see the patient today to order those testing. The patient currently denies having any chest pain or shortness of breath or cough. He has been complaining of pain to the left medial ankle area, more of a dull aching pain, but no worsening. No significant drainage from the wound. No nausea, vomiting. No diarrhea. REVIEW OF SYSTEMS: Positive points have been mentioned in HPI. Other systems negative. Past medical history and surgical history reviewed. Change in medications reviewed. PHYSICAL EXAMINATION: Blood pressure 152/77 with a pulse 58, temperature 98.4. He is 99% on room air. General description is an elderly male lying in bed in no distress. Respiratory system: Unlabored breathing. Clear to auscultation anteriorly. Heart is S1, S2. Regular rate and rhythm. Abdomen soft, no tenderness. Extremities: No edema of the feet. Left medial ankle wound with some slough tissue. No surrounding redness. Some foul smelling. LABS: Hemoglobin 13.2 with white count 5.8. BUN of 17, creatinine 0.97. Bone scan was indeterminate. DIAGNOSTIC IMPRESSION AND PLAN: Patient with left medial ankle wound with concern for possible deep infection. Bone scan has been indeterminate. The patient has been on cefazolin because of his fevers. Culture positive for MSSA. We will keep the patient on cefazolin 2 g q.8 hours. I will order PICC line for outpatient IV antibiotic therapy. Local wound care to continue with [facility]. The baseline CBC, CMP will be ordered that may need to be followed in the outpatient setting. Continue supportive care. MMODL / IJN: [id number] /
[2018-12-06] MEDS: ATORVASTATIN 20 MG TAB PO SCH (21:28)
[2018-12-06] MEDS: HYDROcodone/APAP 5-325MG 1 EACH TAB PO PRN (21:34)
[2018-12-07] MEDS: SODIUM CHLORIDE 0.9% 1,000 ML IV SCH (01:21)
[2018-12-07] MEDS: FAMOTIDINE 20 MG TAB PO SCH ×2 (07:26→20:46)
[2018-12-07] MEDS: HEPARIN SODIUM,PORCINE 5,000 UNIT/ML 1 ML VIAL SQ SCH ×2 (07:26→16:30)
[2018-12-07] MEDS: ASPIRIN 81 MG PO SCH (07:26)
[2018-12-07] MEDS: HYDROcodone/APAP 10-325MG 1 EACH TAB PO PRN ×2 (07:27→16:25)
--- NOTE | 2018-12-07 13:23 | P.PN ---
Subjective Progress Note Date: 12/06/18 Principal diagnosis: ( Infected Left medial malleolus ankle ulcer 67-year-old male was admitted the for ankle ulcer and cellulitis. Bone scan is inconclusive for any osteomyelitis. Patient is presently on ceftezole and wound cultures are not available. Infectious disease is following the patient patient may and up needing IV antibiotics. 12/01/2018 No overnight events blood cultures so far negative 12/03/2018 Patient denied any complaints of chest pain or short of breath. Left leg swelling is still present. Wound is is bandaged at this time. Patient continues to be on Ancef as per ID recommendations. Continued on wound care. Arterial duplex scan will be done. Ankle-brachial index. 12/04/2018 Patient appears to be comfortable and lying in the bed. Still complaining of left leg pain. No fever no chills. No other acute overnight issues. Continued on IV antibiotics. Anticipate discharge with final antibiotic recommendations per ID. 12/05/2018 Patient is sitting in a chair comfortably. Still complaining of left leg pain. Wound care is being continued. ID recommends antibiotics through PICC line. Anticipate discharged tomorrow. Continue with [place] for pain management. 12/06/2018 Patient is sitting in the chair comfortably. No fever or chills.. Left leg pain is better. Continued on IV antibiotics with PICC line. Anticipate TO BE discharged to rehab. Constitutional: Denied any fatigue denied any fever. Cardio vascular: denied any chest pain, palpitations Gastrointestinal denied any nausea vomiting Pulmonary: Denied any shortness of breath cough Neurologic denied any new focal deficits All inpatient medications were reviewed and appropriate changes in these medications as dictated in the interval history and assessment and plan. Objective - Vital Signs Vital signs: Vital Signs Temp 96.4 F L 12/06/18 15:19 Pulse 58 L 12/06/18 15:19 Resp 12 12/06/18 15:19 BP 152/77 12/06/18 15:19 Pulse Ox 99 12/06/18 15:19 Intake & Output 12/05/18 12/06/18 12/06/18 18:59 06:59 18:59 Intake Total 100 600 200 Output Total 2050 900 Balance 100 -1450 -700 Weight 69.5 kg Intake: Intake, IV Titration 100 200 Amount Sodium Chloride 0.9% 1, 100 000 ml @ 20 mls/hr IV . Q24H [facility] Rx#:[id number] ceFAZolin 2 gm In Sodium 100 100 Chloride 0.9% 50 ml @ 100 mls/hr IVPB Q8HR [facility] Rx# :[id number] Oral 600 Output: Urine 2050 900 - Exam GENERAL: The patient is alert and oriented x3, not in any acute distress. Well developed, well nourished. HEENT: Pupils are round and equally reacting to light. EOMI. No scleral icterus. No conjunctival pallor. Normocephalic, atraumatic. No pharyngeal erythema. No thyromegaly. CARDIOVASCULAR: S1 and S2 present. No murmurs, rubs, or gallops. PULMONARY: Chest is clear to auscultation, no wheezing or crackles. ABDOMEN: Soft, nontender, nondistended, normoactive bowel sounds. No palpable organomegaly. MUSCULOSKELETAL: No joint swelling or deformity. EXTREMITIES: No cyanosis, clubbing, or pedal edema. Patient had an infected ulcer in the left medial malleolus. Patient also appears to be stage III to 4 NEUROLOGICAL: Gross neurological examination did not reveal any focal deficits. SKIN: No rashes. - Labs CBC & Chem 7: 12/03/18 12:07 12/03/18 12:07 Assessment and Plan Assessment: -Infected ulcer in the left medial malleolus wound . Arterial duplex showed normal ankle-brachial index. Local wound care infectious disease was consulted continue cefazolin -COPD without any acute exacerbation patient continues to smoke smoking cessation counseling was provided -Hyperlipidemia -Hypertension -Intravascular disease -Depression For above-mentioned chronic medical problems patient will resume continued on appropriate home medications patient may need DVT prophylaxis with the subcutaneous heparin Time with Patient: Greater than 30
[2018-12-07] MEDS: ATORVASTATIN 20 MG TAB PO SCH (20:46)
[2018-12-08] MEDS: HEPARIN SODIUM,PORCINE 5,000 UNIT/ML 1 ML VIAL SQ SCH ×4 (00:14→23:58)
[2018-12-08] MEDS: HYDROcodone/APAP 10-325MG 1 EACH TAB PO PRN ×4 (00:17→20:15)
[2018-12-08] MEDS: SODIUM CHLORIDE 0.9% 1,000 ML IV SCH ×2 (03:46→23:58)
[2018-12-08] MEDS: ASPIRIN 81 MG PO SCH (08:26)
[2018-12-08] MEDS: FAMOTIDINE 20 MG TAB PO SCH ×2 (08:27→20:15)
[2018-12-08] MEDS: LISINOPRIL 10 MG TAB PO SCH (15:25)
[2018-12-08] MEDS: ATORVASTATIN 20 MG TAB PO SCH (20:15)
--- NOTE | 2018-12-08 23:33 | P.PN ---
Subjective Progress Note Date: 12/07/18 Principal diagnosis: ( Infected Left medial malleolus ankle ulcer 67-year-old male was admitted the for ankle ulcer and cellulitis. Bone scan is inconclusive for any osteomyelitis. Patient is presently on ceftezole and wound cultures are not available. Infectious disease is following the patient patient may and up needing IV antibiotics. 12/01/2018 No overnight events blood cultures so far negative 12/03/2018 Patient denied any complaints of chest pain or short of breath. Left leg swelling is still present. Wound is is bandaged at this time. Patient continues to be on Ancef as per ID recommendations. Continued on wound care. Arterial duplex scan will be done. Ankle-brachial index. 12/04/2018 Patient appears to be comfortable and lying in the bed. Still complaining of left leg pain. No fever no chills. No other acute overnight issues. Continued on IV antibiotics. Anticipate discharge with final antibiotic recommendations per ID. 12/05/2018 Patient is sitting in a chair comfortably. Still complaining of left leg pain. Wound care is being continued. ID recommends antibiotics through PICC line. Anticipate discharged tomorrow. Continue with [place] for pain management. 12/06/2018 Patient is sitting in the chair comfortably. No fever or chills.. Left leg pain is better. Continued on IV antibiotics with PICC line. Anticipate TO BE discharged to rehab. 12/07/2018 Patient denied any complaints of chest pain or shortness of breath. Pain is controlled with [place]. Patient is being continued on IV antibiotics. No other acute overnight issues. Constitutional: Denied any fatigue denied any fever. Cardio vascular: denied any chest pain, palpitations Gastrointestinal denied any nausea vomiting Pulmonary: Denied any shortness of breath cough Neurologic denied any new focal deficits All inpatient medications were reviewed and appropriate changes in these medications as dictated in the interval history and assessment and plan. Objective - Vital Signs Vital signs: Vital Signs Temp 97.3 F L 12/07/18 13:00 Pulse 53 L 12/07/18 13:00 Resp 16 12/07/18 13:00 BP 164/83 12/07/18 13:00 Pulse Ox 100 12/07/18 13:00 Intake & Output 12/06/18 12/07/18 12/07/18 18:59 06:59 18:59 Intake Total 200 1100 Output Total 900 1400 Balance -700 1100 -1400 Weight 67.5 kg Intake: Intake, IV Titration 200 Amount Sodium Chloride 0.9% 1, 100 000 ml @ 20 mls/hr IV . Q24H [facility] Rx#:[id number] ceFAZolin 2 gm In Sodium 100 Chloride 0.9% 50 ml @ 100 mls/hr IVPB Q8HR [facility] Rx# :[id number] Oral 1100 Output: Urine 900 1400 Other: # Voids 3 # Bowel Movements 1 - Exam GENERAL: The patient is alert and oriented x3, not in any acute distress. Well developed, well nourished. HEENT: Pupils are round and equally reacting to light. EOMI. No scleral icterus. No conjunctival pallor. Normocephalic, atraumatic. No pharyngeal erythema. No thyromegaly. CARDIOVASCULAR: S1 and S2 present. No murmurs, rubs, or gallops. PULMONARY: Chest is clear to auscultation, no wheezing or crackles. ABDOMEN: Soft, nontender, nondistended, normoactive bowel sounds. No palpable organomegaly. MUSCULOSKELETAL: No joint swelling or deformity. EXTREMITIES: No cyanosis, clubbing, or pedal edema. Patient had an ulcer in the left medial malleolus. no drainage noted. Patient also appears to be stage III to 4 NEUROLOGICAL: Gross neurological examination did not reveal any focal deficits. SKIN: No rashes. - Labs CBC & Chem 7: 12/03/18 12:07 12/03/18 12:07 Labs: Abnormal Lab Results - Last 24 Hours (Table) 12/07/18 12/07/18 Range/Units 11:04 11:04 ESR 91 H (0-15) mm/hr C-Reactive Protein 21.6 H (<10.0) mg/L Assessment and Plan Assessment: -Infected ulcer in the left medial malleolus wound . Arterial duplex showed normal ankle-brachial index. Local wound care infectious disease was consulted. continue cefazolin -COPD without any acute exacerbation patient continues to smoke smoking cessation counseling was provided -Hyperlipidemia -Hypertension -Intravascular disease -Depression For above-mentioned chronic medical problems patient will resume continued on appropriate home medications patient may need DVT prophylaxis with the subcutaneous heparin Time with Patient: Greater than 30
--- NOTE | 2018-12-08 23:39 | P.PN ---
Subjective Progress Note Date: 12/08/18 Principal diagnosis: ( Infected Left medial malleolus ankle ulcer 67-year-old male was admitted the for ankle ulcer and cellulitis. Bone scan is inconclusive for any osteomyelitis. Patient is presently on ceftezole and wound cultures are not available. Infectious disease is following the patient patient may and up needing IV antibiotics. 12/01/2018 No overnight events blood cultures so far negative 12/03/2018 Patient denied any complaints of chest pain or short of breath. Left leg swelling is still present. Wound is is bandaged at this time. Patient continues to be on Ancef as per ID recommendations. Continued on wound care. Arterial duplex scan will be done. Ankle-brachial index. 12/04/2018 Patient appears to be comfortable and lying in the bed. Still complaining of left leg pain. No fever no chills. No other acute overnight issues. Continued on IV antibiotics. Anticipate discharge with final antibiotic recommendations per ID. 12/05/2018 Patient is sitting in a chair comfortably. Still complaining of left leg pain. Wound care is being continued. ID recommends antibiotics through PICC line. Anticipate discharged tomorrow. Continue with [place] for pain management. 12/06/2018 Patient is sitting in the chair comfortably. No fever or chills.. Left leg pain is better. Continued on IV antibiotics with PICC line. Anticipate TO BE discharged to rehab. 12/07/2018 Patient denied any complaints of chest pain or shortness of breath. Pain is controlled with [place]. Patient is being continued on IV antibiotics. No other acute overnight issues. 12/08/18 Patient denies any new complaints today. Pain is fairly controlled with [place]. No fever no chills. Continued on IV antibiotics in the form of cefazolin. PICC line has been placed. Anticipate discharge to rehab on Sunday. Constitutional: Denied any fatigue denied any fever. Cardio vascular: denied any chest pain, palpitations Gastrointestinal denied any nausea vomiting Pulmonary: Denied any shortness of breath cough Neurologic denied any new focal deficits All inpatient medications were reviewed and appropriate changes in these m edications as dictated in the interval history and assessment and plan. Objective - Vital Signs Vital signs: Vital Signs Temp 97.2 F L 12/08/18 13:00 Pulse 73 12/08/18 13:00 Resp 16 12/08/18 13:00 BP 159/91 12/08/18 13:00 Pulse Ox 98 12/08/18 13:00 Intake & Output 12/07/18 12/08/18 12/08/18 18:59 06:59 18:59 Intake Total 800 Output Total 1400 Balance -1400 800 Weight 70.8 kg Intake: Oral 800 Output: Urine 1400 Other: Voiding Method Urinal Urinal # Voids 7 2 4 # Bowel Movements 1 - Exam GENERAL: The patient is alert and oriented x3, not in any acute distress. Well developed, well nourished. HEENT: Pupils are round and equally reacting to light. EOMI. No scleral icterus. No conjunctival pallor. Normocephalic, atraumatic. No pharyngeal erythema. No thyromegaly. CARDIOVASCULAR: S1 and S2 present. No murmurs, rubs, or gallops. PULMONARY: Chest is clear to auscultation, no wheezing or crackles. ABDOMEN: Soft, nontender, nondistended, normoactive bowel sounds. No palpable organomegaly. MUSCULOSKELETAL: No joint swelling or deformity. EXTREMITIES: No cyanosis, clubbing, or pedal edema. Patient had an ulcer in the left medial malleolus. no drainage noted. Patient also appears to be stage III to 4 NEUROLOGICAL: Gross neurological examination did not reveal any focal deficits. SKIN: No rashes. - Labs CBC & Chem 7: 12/03/18 12:07 12/03/18 12:07 Assessment and Plan Assessment: -Infected ulcer in the left medial malleolus wound . Arterial duplex showed normal ankle-brachial index. Local wound care infectious disease was consulted. continue cefazolin -COPD without any acute exacerbation patient continues to smoke smoking cessation counseling was provided -Hyperlipidemia -Hypertension -Intravascular disease -Depression For above-mentioned chronic medical problems patient will resume continued on ap propriate home medications patient may need DVT prophylaxis with the subcutaneous heparin
[2018-12-09] MEDS: HYDROcodone/APAP 10-325MG 1 EACH TAB PO PRN ×4 (01:55→20:02)
[2018-12-09] MEDS: HEPARIN SODIUM,PORCINE 5,000 UNIT/ML 1 ML VIAL SQ SCH ×3 (07:28→22:50)
[2018-12-09] MEDS: LISINOPRIL 10 MG TAB PO SCH (07:29)
[2018-12-09] MEDS: FAMOTIDINE 20 MG TAB PO SCH ×2 (07:29→19:05)
[2018-12-09] MEDS: ASPIRIN 81 MG PO SCH (07:29)
--- NOTE | 2018-12-09 16:29 | P.PN ---
Subjective Progress Note Date: 12/09/18 Principal diagnosis: ( Infected Left medial malleolus ankle ulcer 67-year-old male was admitted the for ankle ulcer and cellulitis. Bone scan is inconclusive for any osteomyelitis. Patient is presently on ceftezole and wound cultures are not available. Infectious disease is following the patient patient may and up needing IV antibiotics. 12/01/2018 No overnight events blood cultures so far negative 12/03/2018 Patient denied any complaints of chest pain or short of breath. Left leg swelling is still present. Wound is is bandaged at this time. Patient continues to be on Ancef as per ID recommendations. Continued on wound care. Arterial duplex scan will be done. Ankle-brachial index. 12/04/2018 Patient appears to be comfortable and lying in the bed. Still complaining of left leg pain. No fever no chills. No other acute overnight issues. Continued on IV antibiotics. Anticipate discharge with final antibiotic recommendations per ID. 12/05/2018 Patient is sitting in a chair comfortably. Still complaining of left leg pain. Wound care is being continued. ID recommends antibiotics through PICC line. Anticipate discharged tomorrow. Continue with [place] for pain management. 12/06/2018 Patient is sitting in the chair comfortably. No fever or chills.. Left leg pain is better. Continued on IV antibiotics with PICC line. Anticipate TO BE discharged to rehab. 12/07/2018 Patient denied any complaints of chest pain or shortness of breath. Pain is controlled with [place]. Patient is being continued on IV antibiotics. No other acute overnight issues. 12/08/18 Patient denies any new complaints today. Pain is fairly controlled with [place]. No fever no chills. Continued on IV antibiotics in the form of cefazolin. PICC line has been placed. Anticipate discharge to rehab on Sunday. 12/09/2017 Patient denied any new complaints today. Leg pain is better. Continue IV antibiotics. Awaiting placement at this time. Constitutional: Denied any fatigue denied any fever. Cardio vascular: denied any chest pain, palpitations Gastrointestinal denied any nausea vomiting Pulmonary: Denied any shortness of breath cough Neurologic denied any new focal deficits All inpatient medications were reviewed and appropriate changes in these medications as dictated in the interval history and assessment and plan. Objective - Vital Signs Vital signs: Vital Signs Temp 97.7 F 12/09/18 13:48 Pulse 59 L 12/09/18 13:48 Resp 16 12/09/18 13:48 BP 156/79 12/09/18 13:48 Pulse Ox 99 12/09/18 13:48 Intake & Output 12/08/18 12/09/18 12/09/18 18:59 06:59 18:59 Intake Total 900 Output Total 625 Balance -625 900 Weight 71.5 kg Intake: Oral 900 Output: Urine 625 Other: Voiding Method Urinal Urinal # Voids 4 2 4 - Exam GENERAL: The patient is alert and oriented x3, not in any acute distress. Well developed, well nourished. HEENT: Pupils are round and equally reacting to light. EOMI. No scleral icterus. No conjunctival pallor. Normocephalic, atraumatic. No pharyngeal erythema. No thyromegaly. CARDIOVASCULAR: S1 and S2 present. No murmurs, rubs, or gallops. PULMONARY: Chest is clear to auscultation, no wheezing or crackles. ABDOMEN: Soft, nontender, nondistended, normoactive bowel sounds. No palpable organomegaly. MUSCULOSKELETAL: No joint swelling or deformity. EXTREMITIES: No cyanosis, clubbing, or pedal edema. Patient had an ulcer in the left medial malleolus. no drainage noted. Patient also appears to be stage III to 4 NEUROLOGICAL: Gross neurological examination did not reveal any focal deficits. SKIN: No rashes. - Labs CBC & Chem 7: 12/03/18 12:07 12/03/18 12:07 Assessment and Plan Assessment: -Infected ulcer in the left medial malleolus wound . Arterial duplex showed normal ankle-brachial index. Local wound care infectious disease was consulted. continue cefazolin -COPD without any acute exacerbation patient continues to smoke smoking cessation counseling was provided -Hyperlipidemia -Hypertension -Intravascular disease -Depression For above-mentioned chronic medical problems patient will resume continued on appropriate home medications patient may need DVT prophylaxis with the subcutaneous heparin Time with Patient: Greater than 30
[2018-12-09] MEDS: ATORVASTATIN 20 MG TAB PO SCH (19:05)
[2018-12-09] MEDS: SODIUM CHLORIDE 0.9% 1,000 ML IV SCH (20:02)
[2018-12-09 22:52] VITALS: RESP 20
[2018-12-10 05:21] VITALS: BP 155/78; PULSE 64; TEMP 97.9
[2018-12-10] MEDS: FAMOTIDINE 20 MG TAB PO SCH (07:34)
[2018-12-10] MEDS: HEPARIN SODIUM,PORCINE 5,000 UNIT/ML 1 ML VIAL SQ SCH (07:34)
[2018-12-10] MEDS: ASPIRIN 81 MG PO SCH (07:34)
[2018-12-10] MEDS: LISINOPRIL 10 MG TAB PO SCH (07:34)
[2018-12-10] MEDS: HYDROcodone/APAP 10-325MG 1 EACH TAB PO PRN (07:35)
--- NOTE | 2018-12-10 11:51 | P.DS ---
Providers Date of admission: 11/28/18 14:21 Expected date of discharge: 12/10/18 Attending physician: Meryl Barriga Consults: 11/28/18 01:12 Consult Physician Routine Consulting Provider: Perry Kunz Reason/Comments: infected leg ulcer Do you want consulting provider notified?: Yes Primary care physician: Stated None Hospital Course: Discharge diagnosis -Infected ulcer in the left medial malleolus wound . Arterial duplex showed normal ankle-brachial index. Local wound care infectious disease was consulted continue cefazolin as per ID recommendations. -COPD without any acute exacerbation patient continues to smoke smoking cessation counseling was provided -Hyperlipidemia -Hypertension -Intravascular disease -Depression Hospital course 67-year-old male was admitted the for ankle ulcer and cellulitis. Bone scan is inconclusive for any osteomyelitis. Patient is presently on ceftezole and wound cultures are not available. Infectious disease is following the patient patient may and up needing IV antibiotics. 12/01/2018 No overnight events blood cultures so far negative 12/03/2018 Patient denied any complaints of chest pain or short of breath. Left leg swelling is still present. Wound is is bandaged at this time. Patient continues to be on Ancef as per ID recommendations. Continued on wound care. Arterial duplex scan will be done. Ankle-brachial index. 12/04/2018 Patient appears to be comfortable and lying in the bed. Still complaining of left leg pain. No fever no chills. No other acute overnight issues. Continued on IV antibiotics. Anticipate discharge with final antibiotic recommendations per ID. 12/05/2018 Patient denied any new complaints of chest pain or shortness of breath. No fever no chills. Patient had PICC line placed to complete the antibiotic course for leg ulcers. Patient is otherwise stable to be discharged to rehab. Patient will need to continue with wound care and daily dressing changes. 12/10/2089 Patient be continued on antibiotics the form of cefazolin. No fever no chills. No other acute overnight issues. Patient is symptomatic pain is controlled. Patient really to follow with primary care physician and wound care clinic. Stable to discharge to rehab to complete antibiotic course. GENERAL: The patient is alert and oriented x3, not in any acute distress. Well developed, well nourished. HEENT: Pupils are round and equally reacting to light. EOMI. No scleral icterus. No conjunctival pallor. Normocephalic, atraumatic. No pharyngeal erythema. No thyromegaly. CARDIOVASCULAR: S1 and S2 present. No murmurs, rubs, or gallops. PULMONARY: Chest is clear to auscultation, no wheezing or crackles. ABDOMEN: Soft, nontender, nondistended, normoactive bowel sounds. No palpable organomegaly. MUSCULOSKELETAL: No joint swelling or deformity. EXTREMITIES: No cyanosis, clubbing, or pedal edema. Patient had an infected ulcer in the left medial malleolus. Healing well. Patient also appears to be stage III to 4 NEUROLOGICAL: Gross neurological examination did not reveal any focal deficits. SKIN: No rashes. Vital Signs 12/05/18 14:55 Temperature 97.3 F L Pulse Rate [ 54 L Pulse Oximetery ] Respiratory 18 Rate Blood Pressure 172/70 [Right Arm] O2 Sat by Pulse 99 Oximetry Total time taken greater than 35 minutes including 18 minutes for counseling and coordination of care. Vital Signs 12/10/18 04:10 Temperature 97.9 F Pulse Rate [ 64 Pulse Oximetery ] Respiratory 20 Rate Blood Pressure 155/78 [Right Arm] O2 Sat by Pulse 97 Oximetry Patient Condition at Discharge: Fair Plan - Discharge Summary Discharge Rx Participant: Yes New Discharge Prescriptions: New ceFAZolin [Kefzol] 2 gm IVP Q8HR #126 dose HYDROcodone/APAP 5-325MG [[place] 5-325] 1 each PO Q6HR PRN 3 Days #12 tab PRN Reason: Moderate Pain Lisinopril [Zestril] 10 mg PO DAILY tab Continue Simvastatin [Zocor] 40 mg PO HS Omeprazole [PriLOSEC] 20 mg PO AC-BRKFST Aspirin EC [Ecotrin Low Dose] 81 mg PO DAILY Multivitamins, Thera [Multivitamin (formulary)] 1 tab PO DAILY Furosemide [Lasix] 20 mg PO DAILY PRN PRN Reason: swelling Discontinued HYDROcodone/APAP 10-325MG [[place] 10-325] 1 tab PO Q6HR PRN PRN Reason: Pain Loratadine [Claritin] 10 mg PO DAILY Ipratropium [place] [Atrovent Hfa] 2 puff INHALATION RT-QID PRN PRN Reason: Shortness Of Breath Discharge Medication List Omeprazole [PriLOSEC] 20 mg PO AC-BRKFST 03/30/15 [History] Simvastatin [Zocor] 40 mg PO HS 03/30/15 [History] Aspirin EC [Ecotrin Low Dose] 81 mg PO DAILY 12/29/15 [History] Multivitamins, Thera [Multivitamin (formulary)] 1 tab PO DAILY 12/29/15 [History] Furosemide [Lasix] 20 mg PO DAILY PRN 03/07/17 [History] ceFAZolin [Kefzol] 2 gm IVP Q8HR #126 dose 11/29/18 [Rx] HYDROcodone/APAP 5-325MG [[place] 5-325] 1 each PO Q6HR PRN 3 Days #12 tab 12/05/18 [Rx] Lisinopril [Zestril] 10 mg PO DAILY tab 12/09/18 [Rx] Follow up Appointment(s)/Referral(s): None,Stated [Primary Care Provider] - 1-2 days [facility] Visiting Nurse, [NON-STAFF] - 1-2 Days Ambulatory/Diagnostic Orders: Basic Metabolic Panel [LAB.AMB] Time Frame: 3 Days, Location: None Selected Complete Blood Count w/diff [LAB.AMB] Location: None Selected Patient Instructions/Handouts: Heart Failure (DC), How to Stop Smoking (DC) Activity/Diet/Wound Care/Special Instructions: Thera Honey, Non-stick guaze, curlex, and kenyon daily. Activity limited until follow-up, may advance as tolerated Continue IV abx therapy per infectious disease Follow up with labs in 2-3 days continue current diet Discharge Disposition: TRANSFER TO SNF/ECF
--- NOTE | 2018-12-10 13:29 | P.PN ---
Subjective Progress Note Date: 12/10/18 This is a 67-year-old -[place] man who gives history of having a wound on his left ankle that appears every 3 years. He denies any injury to the area. He does give history of IV drug use when he was young but none for 30 years. After much questioning, patient does admit that he is using heroin and cocaine but is snorting it. Patient is also an active smoker of one pack per day. He drinks alcohol occasionally. He denies history of diabetes. Patient [facility] and at that time was under the care of Dr. Johansen. Patient states that he has a wound to his left ankle that appeared about 4-5 days ago. He noticed one day that there were maggots in the wound when he was trying to clean it. He has used peroxide and soap and then wraps the ankle tightly. He has not sought treatment for it. He came into [facility] emergency center for evaluation. He was found to be afebrile, white count 6.4, creatinine 1.08, blood sugar 101, lactic acid 1.5. Patient was given Zosyn in the emergency center and admitted to the [facility] floor. Blood cultures status received. Ankle x-ray showed no displaced fracture. 11/29/2018 the patient seems doing relatively well this point in time. The ulceration is tolerating current local wound care with the therahoney and wraps quite well. The patient is no other new complaints. Bone scan did not verify underlying bony infection. 12/10/2018 patient showing improvement at this point in time. The ulceration continues to have some scant amount of drainage but doing well with the therahoney. Is under culture has evidence of MSSA and he is now being treated with Ancef 2 g IV piggyback every 8 hours. Case is discussed with the personal financial planner. Objective - Vital Signs Vital signs: Vital Signs Temp 97.9 F 12/10/18 04:10 Pulse 64 12/10/18 04:10 Resp 20 12/10/18 04:10 BP 155/78 12/10/18 04:10 Pulse Ox 97 12/10/18 04:10 Intake & Output 12/09/18 12/10/18 12/10/18 18:59 06:59 18:59 Intake Total 900 400 Output Total 300 475 Balance 900 100 -475 Weight 71.5 kg 70 kg Intake: Oral 900 400 Output: Urine 300 475 Other: Voiding Method Urinal # Voids 4 3 4 # Bowel Movements 1 - Exam Gen: This is a 67-year-old -[place] male. He is resting in bed and appears to be comfortable and in no acute distress HEENT: Head is atraumatic, normocephalic. Pupils equal, round. Sclerae is ani cteric. Conjunctiva pink. Mucous members of the mouth are moist. NECK: Supple. No JVD. No lymphadenopathy. No thyromegaly. LUNGS: Clear to auscultation. No wheezes or rhonchi. No intercostal retra ctions. HEART: Regular rate and rhythm. No murmur. ABDOMEN: Soft. Bowel sounds are present. No masses. No tenderness. EXTREMITIES: No pedal edema. No calf tenderness. Patient has an ulcer to the l eft medial malleolus. Follow odor noted. NEUROLOGICAL: Patient is awake, alert and oriented x3. - Labs CBC & Chem 7: 12/03/18 12:07 12/03/18 12:07 Labs: Laboratory Results WBC 5.8 k/uL (3.8-10.6) 12/03/18 12:07 RBC 4.85 m/uL (4.30-5.90) 12/03/18 12:07 Hgb 13.2 gm/dL (13.0-17.5) 12/03/18 12:07 Hct 46.1 % (39.0-53.0) 12/03/18 12:07 MCV 95.0 fL (80.0-100.0) 12/03/18 12:07 MCH 27.2 pg (25.0-35.0) 12/03/18 12:07 MCHC 28.7 g/dL (31.0-37.0) L 12/03/18 12:07 RDW 15.6 % (11.5-15.5) H 12/03/18 12:07 Plt Count 376 k/uL (150-450) 12/03/18 12:07 Neutrophils % 45 % 12/03/18 12:07 Lymphocytes % 39 % 12/03/18 12:07 Monocytes % 7 % 12/03/18 12:07 Eosinophils % 6 % 12/03/18 12:07 Basophils % 1 % 12/03/18 12:07 Neutrophils # 2.6 k/uL (1.3-7.7) 12/03/18 12:07 Lymphocytes # 2.3 k/uL (1.0-4.8) 12/03/18 12:07 Monocytes # 0.4 k/uL (0-1.0) 12/03/18 12:07 Eosinophils # 0.4 k/uL (0-0.7) 12/03/18 12:07 Basophils # 0.1 k/uL (0-0.2) 12/03/18 12:07 Hypochromasia Moderate 12/03/18 12:07 ESR 91 mm/hr (0-15) H 12/07/18 11:04 PT 10.4 sec (9.0-12.0) 11/28/18 01:00 INR 1.0 (<1.2) 11/28/18 01:00 Sodium 142 mmol/L (137-145) 12/03/18 12:07 Potassium 4.9 mmol/L (3.5-5.1) 12/03/18 12:07 Chloride 106 mmol/L (98-107) 12/03/18 12:07 Carbon Dioxide 30 mmol/L (22-30) 12/03/18 12:07 Anion Gap 6 mmol/L 12/03/18 12:07 BUN 17 mg/dL (9-20) 12/03/18 12:07 Creatinine 0.97 mg/dL (0.66-1.25) 12/03/18 12:07 Est GFR (CKD-EPI)AfAm >90 (>60 ml/min/1.73 sqM) 12/03/18 12:07 Est GFR (CKD-EPI)NonAf 81 (>60 ml/min/1.73 sqM) 12/03/18 12:07 Glucose 93 mg/dL (74-99) 12/03/18 12:07 POC Glucose (mg/dL) 105 mg/dL (75-99) H 11/28/18 16:39 POC Glu Bank Clerk Madisyn Felder 11/28/18 16:39 Plasma Lactic Acid [place]ac 1.5 mmol/L (0.7-2.0) 11/28/18 01:00 Calcium 9.2 mg/dL (8.4-10.2) 12/03/18 12:07 C-Reactive Protein 21.6 mg/L (<10.0) H 12/07/18 11:04 Microbiology 11/28/18 01:00 Blood Blood Culture - Final No Growth after 144 hours Assessment and Plan (1) Venous insufficiency of left leg Narrative/Plan: This 67-year-old male relates that he has a history of recurrent ulceration to the lower extremity on the basis of venous insufficiency from prior injection drug use, maybe exacerbated by some current heroin and cocaine use placed by snorting. Wound cultures are evaluated show evidence of prior MSSA and Citrobacter. Antibiotic therapy is initiated with Ancef at this time. Evaluation for underlying deeper infection by bone scan has been requested. Local wound care with therahoney has been initiated. Nutritional status is being evaluated and supplemented as needed. Unclear when his last TD Was given and may be required before his discharge. Dopplers are requested to further evaluate his vascular status 11/29/2018 the patient is having some improvement but is still having some drainage from the ulcer site. Dopplers are pending at this point in time. Concerns to severe peripheral vascular disease. May require vascular evaluations. At this time IV access and outpatient intravenous antibiotic therapy with Ancef 2 g IV piggyback IV access has been requested I believe this would be occurring at a rehab facility. Local wound care continues with the therahoney product. If possible follow-up in the wound healing Center. 12/10/2018 the patient is having further improvement. He is being followed by vascular surgery. Erections are being made for his transfer to the [facility] to receive his local wound care, antibiotic therapy and rehab. Hopefully at the end of his treatments he will have improvement of the ulceration, have improved strength and will then be able to live with his sister. Ongoing multivitamin and protein intake will be helpful for his healing. He should follow the office in the 3 and 6 week vikki to ensure that he is tolerating anabolic therapy well and weekly blood work had been requested. Current Visit: No Status: Acute Code(s): I87.2 - VENOUS INSUFFICIENCY (CHRONIC) (PERIPHERAL) SNOMED Code(s): 401746843
== END 2018-12-10 14:07 | DRG 300 ==
LOC: EC 23:13 → 3NMEDONC 11-28 01:11 → OBSVTOIN 11-28 14:21 → 4MS4W 12-01 17:52
PROVIDERS: ADMIT Hospitalist; ATTEND Hospitalist
PROC: 02HV33Z Insertion of Infusion Device into Superior Vena Cava, Percutaneous Approach (ICD-10-PCS; principal; 2018-12-05 09:40)
DX: I87.2 Venous insufficiency (chronic) (peripheral) (principal); L97.329 Non-pressure chronic ulcer of left ankle with unspecified severity; L03.116 Cellulitis of left lower limb; I11.0 Hypertensive heart disease with heart failure; I50.9 Heart failure, unspecified; J44.9 Chronic obstructive pulmonary disease, unspecified; E78.5 Hyperlipidemia, unspecified; F11.90 Opioid use, unspecified, uncomplicated; F14.90 Cocaine use, unspecified, uncomplicated; F17.210 Nicotine dependence, cigarettes, uncomplicated; F32.9 Major depressive disorder, single episode, unspecified; I73.9 Peripheral vascular disease, unspecified; M06.9 Rheumatoid arthritis, unspecified; G89.29 Other chronic pain; L40.9 Psoriasis, unspecified; M54.9 Dorsalgia, unspecified; N53.9 Unspecified male sexual dysfunction; Z79.82 Long term (current) use of aspirin; Z79.899 Other long term (current) drug therapy; Z91.048 Other nonmedicinal substance allergy status; Z86.19 Personal history of other infectious and parasitic diseases; Z96.643 Presence of artificial hip joint, bilateral; Z71.6 Tobacco abuse counseling; Z80.9 Family history of malignant neoplasm, unspecified
CPT/HCPCS: 36415; 36573; 78315; 80048; 83605; 85025; 85610; 85652; 86140; 87040; 93005; 93922; 93923; 96365; 96375; 99285